=== PATIENT | male | born 1955 | race African-American/Black ===

== ENCOUNTER 2020-06-17 08:43 | Outpatient (CLI) | payer OTHER, SELFPAY | END 2020-06-17 08:44 | disposition home or self-care (01) | LOC: ANHCOVIDVC 08:43 | PROVIDERS: PCP Family Medicine | DX: Z23 Encounter for immunization (principal) | CPT/HCPCS: 0001A; 91300 ==

== ENCOUNTER 2020-07-08 08:42 | Outpatient (CLI) | payer OTHER, SELFPAY | END 2020-07-08 08:43 | LOC: ANHCOVIDVC 08:42 | PROVIDERS: PCP Family Medicine | DX: Z23 Encounter for immunization (principal) | CPT/HCPCS: 0002A; 91300 ==

== ENCOUNTER 2021-08-09 16:43 | Inpatient (IN) | payer BC, SELFPAY ==
[2021-08-09] VITALS (56 sets, daily range): BP systolic 74–145; BP diastolic 55–121; PULSE 73–89; RESP 16–48; TEMP 35.2–36.6; O2SAT 92–100; BMI 29.3
--- NOTE | ~2021-08-09 | XR_ITS ---
EXAMINATION: XR chest 1V portable DATE: 08/13/2021 05:40 INDICATION: Cardiopulmonary arrest TECHNIQUE: frontal view of the chest was obtained. COMPARISON: Chest radiograph dated 08/12/2021 FINDINGS: Endotracheal tube tip 3.1 cm above the dmitry. Right internal jugular central venous catheter with di stal tip at the caudal superior vena cava. Nasogastric tube extends below the left hemidiaphragm wit h distal tip collimated off the study. Persistent patchy airspace opacities in both lungs with perihilar predominance. No pleural effusion o r pneumothorax. The cardiomediastinal silhouette is normal. IMPRESSION: 1. No significant change in bilateral perihilar predominant lung disease which could represent pneumo audi and/or pulmonary edema. Reviewed, dictated and finalized at location A. IMPRESSION: 1. No significant change in bilateral perihilar predominant lung disease which could represent pneumonia and/or pulmonary edema.
--- NOTE | ~2021-08-09 | XR_ITS ---
EXAMINATION: XR chest 1V portable INDICATION: Hypoxia TECHNIQUE: Portable AP chest at 1449 hours COMPARISON: 0515 hours FINDINGS: The endotracheal tube ends approximately 4.2 cm above the dmitry. The nasogastric tube is f ollowed as far as the stomach. Its tip is beyond the inferior margin of the radiograph. A right inter nal jugular catheter ends in the midsuperior vena cava. There are diffuse interstitial and airspace o pacities with slight worsening. The heart size is normal. There is no pleural effusion or pneumothora x. IMPRESSION: 1. Worsening pulmonary edema. Reviewed, dictated and finalized at location A.
--- NOTE | ~2021-08-09 | CT_ITS ---
EXAMINATION: CT cervical spine wo con DATE: 08/09/2021 18:50 INDICATION: fall TECHNIQUE: Computed tomography (CT) of the cervical spine was performed without intravenous contrast. Automated exposure control and iterative reconstruction technique were employed. The dose-length pro duct was 482.74 mGy-cm. COMPARISON: None FINDINGS: Counting reference: Craniocervical junction. There are seven cervical type vertebral bodies. Anatomic Variants: None. Vertebral Body Alignment: Intact. Craniocervical junction: Moderate degenerative change. Alignment intact. Osseous structures/fracture: No evidence of a lytic or blastic process in the visualized spine. N o evidence of acute fracture. Small left mastoid effusion. Cervical soft tissues: The paraspinal soft tissues planes are maintained. Biapical opacities may r eflect pulmonary edema. Partially visualized endotracheal and nasogastric tubes. Degenerative changes: Degenerative changes, without severe neural foraminal or central canal narrowin g. IMPRESSION: No acute fracture or traumatic malalignment in the cervical spine. Reviewed, dictated and finalized at location K.
--- NOTE | ~2021-08-09 | US_ITS ---
EXAMINATION: US renal BI DATE: 08/15/2021 12:20 INDICATION: Acute kidney injury TECHNIQUE: Multiple grayscale and Doppler ultrasound images of the kidneys were obtained. COMPARISON: None. FINDINGS: The right kidney measures 10.7 x 6.7 x 5.6 cm. The left kidney measures 9.7 x 5.3 x 6.6 cm. The kidneys demonstrate normal parenchymal echogenicity. There is no hydronephrosis. The bladder is decompressed by Delgadillo catheter. IMPRESSION: 1. Normal kidneys without hydronephrosis. Reviewed, dictated and finalized at location A.
--- NOTE | ~2021-08-09 | XR_ITS ---
EXAMINATION: XR chest port-a-cath/central Exam Date/Time: 08/09/2021 19:30 CDT CLINICAL HISTORY: central line placement Comparison: None available. RESULT: Lines, tubes, and devices: Endotracheal tube terminating 2.4 cm above the dmitry. Right IJ central v enous line terminating in the SVC. Lungs and pleura: Increased patchy perihilar opacities. Low lung volumes. Cardiomediastinal silhouette: Stable cardiomediastinal silhouette. Other: No acute osseous or upper abdominal finding. IMPRESSION: Medial right IJ central venous line, in good position. Worsening pulmonary opacities may reflect deve loping edema. Reviewed, dictated and finalized at [facility]. IMPRESSION: Medial right IJ central venous line, in good position. Worsening pulmonary opac ities may reflect developing edema.
--- NOTE | ~2021-08-09 | XR_ITS ---
EXAMINATION: XR chest 1V portable DATE: 08/10/2021 05:41 INDICATION: Cardiopulmonary arrest TECHNIQUE: frontal view of the chest was obtained. COMPARISON: Chest radiograph dated 08/09/2021 FINDINGS: Endotracheal tube tip 3.8 cm above the dmitry. Right internal jugular central venous catheter with di stal tip in the midsuperior vena cava. Nasogastric tube extends below the left hemidiaphragm with di stal tip collimated off the study. Persistent opacities throughout all lung zones bilaterally with perihilar predominance. No pleural ef fusion or pneumothorax. The cardiomediastinal silhouette is normal. IMPRESSION: 1. Minimal change in diffuse bilateral lung disease which could represent pneumonia or pulmonary jose e a. Reviewed, dictated and finalized at location A. IMPRESSION: 1. Minimal change in diffuse bilateral lung disease which could represent pneum onia or pulmonary edema.
--- NOTE | ~2021-08-09 | XR_ITS ---
EXAMINATION: XR chest 1V portable INDICATION: Respiratory failure TECHNIQUE: Portable AP chest at 0516 hours COMPARISON: 08/14/2021 FINDINGS: The endotracheal tube ends approximately 4.1 cm above the dmitry. The nasogastric tube is f ollowed as far as the stomach. Its tip is beyond the inferior margin of the radiograph. A right inter nal jugular catheter ends with its tip in the distal superior vena cava patchy bilateral opacities pe rsist throughout all lung zones without significant change. IMPRESSION: 1. Diffuse lung disease, consistent with pneumonia and/or pulmonary edema. Reviewed, dictated and finalized at location A.
--- NOTE | ~2021-08-09 | XR_ITS ---
EXAMINATION: XR chest 1V portable INDICATION: Cardiopulmonary arrest TECHNIQUE: Portable AP chest at 0515 hours COMPARISON: 08/13/2021 FINDINGS: The endotracheal tube ends approximately 2.9 cm above the dmitry. The nasogastric tube is f ollowed as far as the stomach. Its tip is beyond the inferior margin of the radiograph. A right inter nal jugular central venous catheter ends with its tip in the distal superior vena cava. A mild diffus e interstitial pattern persists but has improved. There is no pleural effusion or pneumothorax. The c ardiomediastinal silhouette is normal. IMPRESSION: 1. Improving pulmonary edema. Reviewed, dictated and finalized at location A.
--- NOTE | ~2021-08-09 | CT_ITS ---
EXAMINATION: CT brain wo con DATE: 08/09/2021 18:50 INDICATION: fall TECHNIQUE: Computed tomography (CT) of the head was performed without intravenous contrast. The mA wa s adjusted according to patient size. Iterative reconstruction technique was employed. The dose-lengt h product was 605.33 mGy-cm. COMPARISON: None FINDINGS: No acute intracranial hemorrhage or extra-axial fluid collection. No hydrocephalus, mass, or herniation. No acute ischemic infarct. Unremarkable dural venous sinus attenuation. No acute osseous abnormality. The aerated spaces are clear. Mild chronic white matter change. Atherosclerotic intracranial calcifications. IMPRESSION: No acute intracranial process. Reviewed, dictated and finalized at location K.
--- NOTE | ~2021-08-09 | US_ITS ---
EXAMINATION: US venous doppler [facility] DATE: 08/11/2021 11:00 INDICATION: Lower limb swelling. TECHNIQUE: Grayscale ultrasound images without and with compression and Doppler ultrasound images of the bilateral lower extremity veins were obtained. COMPARISON: None. FINDINGS: The visualized portions of right common femoral vein, profunda (deep) femoral vein, femoral vein, pop liteal vein, posterior tibial veins, peroneal veins, gastrocnemius vein and greater saphenous vein ou tflow are patent. The visualized portions of left common femoral vein, profunda femoral vein, femoral vein, popliteal v ein, posterior tibial veins, peroneal veins, gastrocnemius vein and greater saphenous vein outflow ar e patent. IMPRESSION: 1. No deep venous thrombosis in either lower limb. Reviewed, dictated and finalized at location A.
--- NOTE | ~2021-08-09 | CT_ITS ---
EXAMINATION: CT brain wo con DATE: 08/11/2021 09:48 INDICATION: Anoxic brain injury. TECHNIQUE: Computed tomography (CT) of the head was performed without intravenous contrast. The mA wa s adjusted according to patient size. Iterative reconstruction technique was employed. The dose-lengt h product was 605.33 mGy-cm. COMPARISON: Head CT 08/09/2021 FINDINGS: There is no intracranial hemorrhage, acute infarction, or abnormal intracranial mass lesion . The ventricles are normal in size. The orbits are normal. There is mucosal thickening and dependent fluid in the mid right nasal sinuses. There are trace bilateral mastoid effusions. There is posterio r superior scalp soft tissue swelling. Partially visualized is a nasogastric tube. IMPRESSION: 1. Normal brain. Reviewed, dictated and finalized at location B. IMPRESSION: 1. Normal brain.
--- NOTE | ~2021-08-09 | XR_ITS ---
EXAMINATION: XR chest 1V portable DATE: 08/12/2021 05:28 INDICATION: Cardiopulmonary arrest TECHNIQUE: frontal view of the chest was obtained. COMPARISON: Chest radiograph dated 08/11/2021 FINDINGS: Endotracheal tube tip 3.8 cm above the dmitry. Right internal jugular central venous catheter with di stal tip at the midsuperior vena cava. Nasogastric tube extends below the left hemidiaphragm with di stal tip collimated off the study. Persistent patchy airspace opacities throughout both lungs consistent with multifocal pneumonia. No p leural effusion or pneumothorax. The cardiomediastinal silhouette is normal. IMPRESSION: 1. No significant change in bilateral multifocal pneumonia. Reviewed, dictated and finalized at location A.
--- NOTE | ~2021-08-09 | XR_ITS ---
r EXAMINATION: XR chest ET placement Exam Date/Time: 08/09/2021 17:00 CDT CLINICAL HISTORY: ET tube intubation Comparison: 11/10/2016. RESULT: Lines, tubes, and devices: Endotracheal tube terminating in the distal trachea 1.7 cm above the brook na. Lungs and pleura: Low lung volumes with bronchovascular crowding. Cardiomediastinal silhouette: Stable cardiomediastinal silhouette. Other: No acute osseous or upper abdominal finding. IMPRESSION: Endotracheal tube, tip terminating 1.7 cm above dmitry. Reviewed, dictated and finalized at location K.
--- NOTE | ~2021-08-09 | XR_ITS ---
EXAM: XR abdomen NG/feed tube insert HISTORY: NG placement COMPARISON: None available FINDINGS: Atelectasis/consolidation in the lung bases, which are incompletely visualized. NG tube, t ip and side port projecting over the stomach. Partially visualized bowel gas pattern is normal. Regio nal bones and soft tissues are normal for age. IMPRESSION: NG tube, in good position. Reviewed, dictated and finalized at location K. IMPRESSION: NG tube, in good position.
--- NOTE | ~2021-08-09 | XR_ITS ---
EXAMINATION: XR chest 1V portable DATE: 08/11/2021 05:30 INDICATION: Cardiopulmonary arrest TECHNIQUE: frontal view of the chest was obtained. COMPARISON: Chest radiograph dated 08/10/21 FINDINGS: Endotracheal tube tip 4.9 cm above the dmitry. Nasogastric tube extends below the left hemidiaphragm with distal tip collimated off the study. Right internal jugular central venous catheter with distal tip in the midsuperior vena cava. Persistent bilateral airspace opacities with perihilar predominance. No pleural effusion or pneumotho rax. The cardiomediastinal silhouette is normal. IMPRESSION: 1. No significant change in diffuse bilateral lung disease which could represent pneumonia or pulmona ry edema. Reviewed, dictated and finalized at location A. IMPRESSION: 1. No significant change in diffuse bilateral lung disease which could represen t pneumonia or pulmonary edema.
--- NOTE | ~2021-08-09 | CT_ITS ---
EXAMINATION: CTA chest PE abdomen pel DATE: 08/11/2021 09:48 INDICATION: Respiratory failure. Fall. TECHNIQUE: Computed tomography angiography (CTA) of the chest was performed with 100 mL Omnipaque-350 intravenous contrast timed to evaluate the pulmonary arteries. Coronal maximum intensity projection 3D-reconstructions were created by the technologist. Computed tomography (CT) of the abdomen and pelv is was performed with intravenous contrast. Automated exposure control and iterative reconstruction t echnique were employed. The dose-length product was 2154.98 mGy-cm. COMPARISON: CT abdomen and pelvis 11/11/2016 FINDINGS: CTA chest: There are patchy airspace opacities and centrilobular nodules in all lobes. There are conf luent dependent airspace opacities in the lower lobes with air bronchograms. There are small pleural effusions. The endotracheal tube tip is in expected position above the dmitry. The heart size is norm al. There are coronary artery calcifications. No pericardial effusion. There is no pulmonary embolus. The nasogastric tube tip is in the stomach. There is mild thoracic spondylosis. CT abdomen and pelvis: The liver, gallbladder, spleen, pancreas, and adrenal glands are normal. There is cortical thinning of the kidneys. There is trace pelvic ascites. There are no dilated loops of dilcia wel. The appendix is normal. There are no pathologically enlarged lymph nodes. There is mild lumbar s pondylosis. IMPRESSION: 1. No pulmonary embolus. 2. Pneumonia involving all lobes, worst in the lower lobes. 3. Small pleural effusions. Reviewed, dictated and finalized at location B.
[2021-08-09] MEDS: ETOMIDATE 20 MG/10 ML AMPUL 8 MG IV PUSH (16:51)
[2021-08-09] MEDS: SUCCINYLCHOLINE CHLORIDE 20 MG/ML 10 ML VIAL 100 MG IV PUSH (16:51)
--- NOTE | 2021-08-09 16:53 | ECG_ITS ---
Measurements Intervals [place] Rate: 83 P: 46 PA: 185 QRS: -41 QRSD: 97 T: 8 QT: 421 QTc: 497 Interpretive Statements SINUS RHYTHM LEFT AXIS DEVIATION T WAVE ABNORMALITY IN ANTEROLATERAL LEADS- CONSIDER ISCHEMIA BASELINE WANDER- I, III, AVL, AVF, V6 ABNORMAL ECG Electronically Signed On 08-09-2021 20:24:17 CDT by Vidal Landeros D.O.
--- NOTE | 2021-08-09 16:53 | ECG_ITS ---
Measurements Intervals [place] Rate: 106 P: 41 PA: 129 QRS: -34 QRSD: 90 T: 67 QT: 341 QTc: 454 Interpretive Statements SINUS TACHYCARDIA LEFT AXIS DEVIATION BASELINE WANDER- V1-V2 BORDERLINE ECG Electronically Signed On 08-10-2021 8:53:21 CDT by Vidal Landeros D.O.
--- NOTE | 2021-08-09 17:00 | PC.NURSE ---
Patient arrives to ED with agonal breathing. Patient being oxygenated via BVM by EMS. Dr. Stewart at bedside and RSI initiated. IV Succ and Etomidate administered and patient intubated via glidescope at 1652. Tube is 8 cm and measuring 25 cm at the lips.
--- NOTE | 2021-08-09 17:02 | ED.CPR ---
HPI - CPR General Chief Complaint: Cardiac Arrest/CPR Stated Complaint: post cardiac arrest - ROSC Source: RN notes reviewed History of Present Illness HPI narrative: Patient presents to emergency department from home for cardiac arrest. History is per EMS as well as the patient's who was present and the patient was standing in a doorway talking the and suddenly he slumped over the is able to catch him and take him to the ground and the patient was unresponsive when police arrived and AED was placed on the patient and advised 1 shock and patient was shocked CPR was started and when pulse check came for the second time the AED had recommended no shock. When EMS arrived patient was in [place] CPR was performed and oral airway was placed but the patient did vomit this out and they did have to suction a large amount of vomitus on the patient's mouth when they went to do pulse check the patient had regained ROSC patient is currently in bed he will move his head [id number] his eyes move [id number] but he does not follow any spontaneous commands nonverbal is being assisted with BVM Related Data Home Medications Medication Instructions Recorded Confirmed aspirin 81 mg tablet,delayed 81 mg PO DAILY 10/23/19 07/21/21 release Allergies Allergy/AdvReac Type Severity Reaction Status Date / Time No Known Allergies Allergy Verified 07/21/21 13:07 Review of Systems Review of Systems: Unable to obtain secondary to altered mental status PMFSH Past Medical History Medical History CAD in [place] artery Dyslipidemia Essential (primary) hypertension Gout Hypertension Microalbuminuria Type 2 diabetes mellitus without complication, without long-term current use of insulin Surgical History Surgical History History of coronary artery stent placement (~2013) History of hernia repair (~1968) Family History Family History Father Carcinoma of colon, Onset Age: 52 Sibling Malignant neoplasm of prostate, Onset Age: 52 Other Diabetes mellitus Family history of Alzheimer's disease Family history of alcoholism Family history of congestive heart failure Hypertension Social History Social History Smoking status: Never smoker Second hand tobacco smoke exposure: No Alcohol intake: never Substance use: never Substance use type: does not use Gender identity (if verbalized by the patient): Male Exam Narrative: CAPPEARANCE: Lying in bed unresponsive to verbal stimuli and will withdraw to painful stimuli HEENT: Normocephalic, atraumatic, dried emesis on face Eyes: PERRL RESPIRATORY: Patient with some mild spontaneous respiration coarse breath sounds bilateral lung alexander no wheezing CARDIOVASCULAR: Regular rate and rhythm without a murmur ABDOMINAL: Soft, nondistended MUSCULOSKELETAl: No clubbing cyanosis or edema does move all extremities NEURO: Laying in bed eyes open looking back and forth does not follow any commands does not follow any verbal commands unable to squeeze hand when asked withdraw to painful stimuli SKIN:: Cool and dry Course Course Emergency Course: Reviewed old records patient with history of RCA stent in [address] Bullard Patient's family was updated on patient's status After initial EKG: Discussed with Dr. Berger with no elevation at this time recommends no Adon at this time Called and discussed with Dr. Irvin presentation work-up agrees with admission to the ICU recommends hypothermia protocol Discussed with MARIELENA Pyle for Dr. Lucas agrees with admission Discussed with Dr. Rodriguez for cardiology agrees with consult no further anticoagulation at this time Patient family again updated on plan for admission Vital Signs Vital signs: Vi
[2021-08-09 17:04] LABS: Basophils Percent Auto 0.4 % (0.2-1.2); Eosinophils Absolute Auto 0.1 K/mm3 (0-0.3); Eosinophils Percent Auto 1.1 % (0-4.4); Hematocrit 44.1 % (42.0-52.0); Hemoglobin 13.9 g/dL (14.0-18.0); Immature Granulocyte Absolute 0.07 K/mm3 (0.00-0.031); Immature Granulocyte Percent A 0.6 % (0-0.5); Lymphocytes Absolute Auto 6.67 K/mm3 (0.9-3.2); Lymphocytes Percent Auto 60.5 % (18.3-44.2); Mean Corpuscular HGB Conc 31.5 g/dl (32-36); Mean Corpuscular Hemoglobin 28.5 pg (26-34); Mean Corpuscular Volume 90.4 fl (80-100); Mean Platelet Volume 10.2 fl (7.4-10.4); Monocytes Absolute Auto 0.7 K/mm3 (0.1-0.6); Monocytes Percent Auto 6.2 % (2.6-8.5); Neutrophils Absolute Auto 3.5 K/mm3 (1.3-6.7); Neutrophils Percent Auto 31.2 % (45.5-73.1); Platelet Count Result 291 k/mm3 (150-375); Red Blood Count 4.88 M/mm3 (4.6-6.20); Red Cell Distribution Width 13.5 % (11.5-14.5)
[2021-08-09] MEDS: MIDAZOLAM HCL (*CRX) 2 MG/2 ML VIAL IV PUSH ×3 (17:05→17:45)
[2021-08-09] MEDS: fentaNYL CITRATE INJ (*CRX) 100 MCG/2 ML VIAL 25 MCG IV PUSH (17:07)
[2021-08-09 17:15] LABS: Prothrombin Time 13.1 Seconds (11.1-14.7)
[2021-08-09 17:16] LABS: Alanine Aminotransferase 387 U/L (4-50); Albumin Level 3.9 g/dL (3.5-5.1); Alkaline Phosphatase 99 U/L (38-126); Anion Gap 9 mmol/L (8-16); Aspartate Amino Transferase 483 U/L (17-59); Bilirubin,Total 0.3 mg/dL (0.2-1.3); Blood Urea Nitrogen 26 mg/dL (9-20); Calcium 8.4 mg/dL (8.4-10.2); Carbon Dioxide 21 mmol/L (22-30); Chloride 103 mmol/L (98-107); Estimated Glomerular Filt Rate > 60; Glucose 416 mg/dL (65-110); Lipase 331 U/L (23-300); Partial Thromboplastin Time 27.2 SECONDS (22.3-36.8); Potassium 4.4 mmol/L (3.4-5.0); Sodium 133 mmol/L (137-145)
[2021-08-09 17:17] LABS: Alveolar/Arterial O2 Gradient 542.5 mmHg; Base Excess ABG -10.8 mEq/l (+/-2.0); Fractional Inspired Oxygen 100 %; HCO3 ABG 16.4 mEq/l (22.0-26.0); Oxygen Content ABG 18.9 %vol (16.0-22.0); Oxyhemoglobin 96.9 % THb (90.0-100.0); PCO2 ABG 41.3 mmHg (35.0-45.0); PO2 ABG 129.2 mmHg (80.0-100.0); PO2 FiO2 Ratio Arterial Blood 1.29 %; Total Hemoglobin 13.7 g/dL (12.0-18.0)
[2021-08-09 17:19] LABS: Device VENTILATOR; Modified Allen's Test Pass; Site Drawn RIGHT RADIAL; pH ABG 7.218 (7.350-7.450)
[2021-08-09 17:20] LABS: Arterial Blood Gas PEEP 5 cmH2O; Arterial Blood Gas Tidal Volume 450 ml; Arterial Blood Gas Vent Mode CMV; Arterial Blood Gas Ventilator rate 20 /MIN
[2021-08-09 17:27] LABS: Troponin I 0.018 ng/mL (0.000-0.034)
[2021-08-09] MEDS: SODIUM CHLORIDE 0.9% IV 1,000 ML 999 ML IV CONT (17:30)
[2021-08-09] MEDS: MIDAZOLAM 100MG/NS 100ML(*CRX) 100 MG/100 ML BAG IV CONT (17:30)
[2021-08-09] MEDS: FENTANYL 2,500MCG/NS250ML(*CRX 2,500 MCG/250 ML BAG IV CONT (17:30)
[2021-08-09 17:35] LABS: Magnesium 1.9 mg/dL (1.6-2.3)
[2021-08-09 17:45] LABS: NT Pro B Type Natriuretic Pept 147 pg/mL (5-100)
[2021-08-09] MEDS: ONDANSETRON INJ 4 MG/2 ML VIAL IV PUSH (17:45)
[2021-08-09 18:00] LABS: Lactic Acid Reflex 2.9 mmol/L (0.7-2.0)
[2021-08-09] MEDS: PROPOFOL IV EMULSION 100 ML 2.95 MG IV CONT (18:10)
[2021-08-09] MEDS: PIPERACILLIN/TAZOBACTAM SOD 4.5 GM in SODIUM CHLORIDE 0.9% IV 100 ML 200 ML IVPB (18:24)
--- NOTE | 2021-08-09 19:13 | PC.NURSE ---
Assumed care of pt. at this time. Report from PERRI Arriaza.
--- NOTE | 2021-08-09 19:38 | PC.NURSE ---
Patient report provided to PERRI Sprague. All questions answered and care of pt transferred.
[2021-08-09 19:50] LABS: Base Excess ABG -6.8 mEq/l (+/-2.0); Carboxyhemoglobin 0.3 % THb (0-2.0); Fractional Inspired Oxygen 100 %; HCO3 ABG 20.2 mEq/l (22.0-26.0); Methemoglobin ABG 0.4 %THb (0-1.5); Oxygen Content ABG 18.6 %vol (16.0-22.0); Oxygen Saturation ABG 98.2 % (95.0-100.0); PCO2 ABG 46.1 mmHg (35.0-45.0); PO2 ABG 131.9 mmHg (80.0-100.0); PO2 FiO2 Ratio Arterial Blood 1.32 %; Reduced Hemoglobin 2.3 %THb (0-5.0); Total Hemoglobin 13.5 g/dL (12.0-18.0)
[2021-08-09 19:56] LABS: Arterial Blood Gas PEEP 5 cmH2O; Arterial Blood Gas Tidal Volume 450 ml; Arterial Blood Gas Vent Mode CMV; Arterial Blood Gas Ventilator rate 20 /MIN; Device VENTILATOR; Modified Allen's Test Unable to perform; Site Drawn RIGHT RADIAL; pH ABG 7.259 (7.350-7.450)
[2021-08-09 19:56] LABS: Appearance Urine Clear (Clear); Bilirubin Urine Negative (Negative); Blood Urine 2+ (Negative); Color Urine Yellow (Yellow); Glucose Urine UA 3+ mg/dL (Negative); Ketones Urine Negative (Negative); Leukocyte Esterase Ur Negative LEU/UL (Negative); Nitrate Urine Negative (Negative); Protein Urine 2+ mg/dL (Negative); Urobilinogen Urine 0.2 mg/dL (<2.0); pH Urine 5.5 (5.0-9.0)
[2021-08-09 19:59] LABS: Mucus Urine Rare /lpf; RBC Urine 0-2 /hpf (0-2); Squamous Epithelial Cell Urine Rare /hpf (Few); WBC Urine 0-3 /hpf
[2021-08-09 20:02] LABS: Add Urine Microscopic? YES
[2021-08-09 20:10] LABS: Amphetamine Screen Urine Negative (Negative); Barbiturate Screen Urine Negative (Negative); Benzodiazepines Screen Urine Positive (Negative); Cannabinoid Screen Urine Negative (Negative); Cocaine Screen Urine Negative (Negative); Methadone Screen Urine Negative (Negative); Opiate Screen Urine Negative (Negative); Phencyclidine Screen Urine Negative (Negative)
[2021-08-09 20:46] LABS: Reflex Lactic Acid Yes or No Add Lactic
[2021-08-09] MEDS: PROPOFOL IV EMULSION 100 ML 35 MG (21:17)
--- NOTE | 2021-08-09 21:34 | PC.NURSE ---
Patient arrived at 2100. Updated Dr. Irvin. Stop propofol for at least 10 mins, see if patient follows any purposeful commands. Call back after assessment. Start LR at 100ml/hr for maintenance fluids.
--- NOTE | 2021-08-09 21:42 | ADMGEN ---
This patient, Ravi Mock, was admitted to Intensive Care Unit-6. Patient/family oriented to hospital policies and general routines including ID bracelet, bed and alarms, visiting hours, pain management, procedures, bathroom and other care routines, personal items, smoking policy, room service/diet, and visiting hours. Information on how to activate the Rapid Response Team has been discussed. Patient/Family are encouraged to report perceived risks to care and to ask questions if they do not understand what they are told or what they should do.
--- NOTE | 2021-08-09 22:00 | PC.NURSE ---
Updated Dr. Irvin, Patient able to move arms, legs and head, however unable to follow commands. Start Hypothermia protocol per Dr. Irvin
[2021-08-09] MEDS: FENTANYL 2,500MCG/NS250ML(*CRX 2,500 MCG/250 ML BAG 20 MCG IV CONT (22:04)
[2021-08-09 22:08] LABS: Glucose Point of Care 340 mg/dl (65-105)
--- NOTE | 2021-08-09 22:30 | PM.IMHP ---
H&P: HPI History of Present Illness Date/Time: Patient requires inpatient monitoring with expected length of stay to exceed 2 midnights for management of care. 08/09/21 22:30 Chief Complaint: Cardiac arrest Narrative: Mr. Mock is a 65-year-old gentleman who presented emergency room via EMS after having a witnessed cardiac arrest. Patient is unable to give any type of history there is no family at bedside so all of may history of the coming from previous records and ER records. Emergency room records patient was talking to his spouse and he went unresponsive. CPR was started and the police department arrived 1st and patient was placed on AED. AED did advise 1 shock which was delivered and then no further shocks were advised. Patient was then transported to the hospital for further evaluation. In the emergency room patient was then intubated in cardiology was notified of patient's presence. Patient has a known history of coronary disease status post stent placement, diabetes mellitus, dyslipidemia, hypertension he, and gout. At this time patient remains sedated intubated insert unable to give any type of history. Review of Systems Review of Systems: Unable to obtain review of systems secondary to patient being sedated and intubated. [facility] Past Medical History Medical History CAD in [place] artery Dyslipidemia Essential (primary) hypertension Gout Hypertension Microalbuminuria Type 2 diabetes mellitus without complication, without long-term current use of insulin Surgical History Surgical History History of coronary artery stent placement (~2013) History of hernia repair (~1968) Family History Family History Father Carcinoma of colon, Onset Age: 52 Sibling Malignant neoplasm of prostate, Onset Age: 52 Other Diabetes mellitus Family history of Alzheimer's disease Family history of alcoholism Family history of congestive heart failure Hypertension Social History Social History Smoking status: Never smoker Second hand tobacco smoke exposure: No Alcohol intake: never Substance use: never Substance use type: does not use Gender identity (if verbalized by the patient): Male Spiritual care concerns: No (NATALIE: Patient intubated & sedated) Meds Home Medications and Allergies Home Medications Medication Instructions Recorded Confirmed Type aspirin 81 mg tablet,delayed 81 mg PO DAILY 10/23/19 07/21/21 History release lisinopril 5 mg tablet 5 mg PO DAILY #90 tablet 07/21/21 07/21/21 Rx metformin 500 mg tablet,extended 1,000 mg PO QPM #180 tablet 07/21/21 07/21/21 Rx release 24hr metoprolol succinate 25 mg 25 mg PO DAILY #90 tablet 07/21/21 07/21/21 Rx tablet,extended release 24 hr atorvastatin 10 mg tablet 10 mg PO QHS #90 tablet 07/29/21 Rx blood-glucose meter #1 ea 07/30/21 Rx cholecalciferol (vitamin D3) 50 50 mcg PO DAILY #1 cap 07/30/21 Rx mcg (2,000 unit) capsule empagliflozin 25 mg tablet 25 mg PO DAILY #90 tablet 07/30/21 Rx glipizide 10 mg tablet, extended 10 mg PO BID #180 tablet 07/30/21 Rx release 24 hr Allergies Allergy/AdvReac Type Severity Reaction Status Date / Time No Known Allergies Allergy Verified 07/21/21 13:07 Vital Signs Vital Signs - 24 hr 08/09/21 16:52 08/09/21 17:30 08/09/21 18:10 Temperature Pulse Rate 79 86 80 Respiratory Rate 16 16 Blood Pressure Pulse Oximetry 100 08/09/21 18:25 08/09/21 18:35 08/09/21 18:58 Temperature Pulse Rate 80 83 84 Respiratory Rate 16 16 20 Blood Pressure 109/65 Pulse Oximetry 100 08/09/21 18:59 08/09/21 19:00 08/09/21 19:02 Temperature Pulse Rate 83 84 83 Respiratory Rate 18 20 22 H Blood Pressure 115/62 Pulse Oximetry 100 100 100
[2021-08-09] MEDS: INSULIN HUMAN REGULAR (*BKC) 100 UNITS/ML 10 UNITS IV PUSH (22:38)
[2021-08-09] MEDS: MINERAL OIL/WHITE PETROLATUM OINTMENT 1 APPLIC EACH EYE (22:39)
[2021-08-09] MEDS: CENTRAL LINE FLUSH 10 ML IV PUSH (22:39)
[2021-08-09] MEDS: LACTATED RINGERS 1,000 ML 100 ML IV CONT (22:39)
[2021-08-09 22:53] LABS: Hematocrit 46.1 % (42.0-52.0); Hemoglobin 14.3 g/dL (14.0-18.0); Mean Corpuscular Hemoglobin 28.3 pg (26-34); Mean Corpuscular Volume 91.1 fl (80-100); Mean Platelet Volume 10.1 fl (7.4-10.4); Platelet Count Result 181 k/mm3 (150-375); Red Blood Count 5.06 M/mm3 (4.6-6.20); Red Cell Distribution Width 13.6 % (11.5-14.5); White Blood Count 3.6 K/mm3 (4.5-10.0)
[2021-08-09 23:03] LABS: Creatine Kinase 1176 U/L (55-170)
[2021-08-09 23:07] LABS: Lactic Acid Reflex 2.2 mmol/L (0.7-2.0)
[2021-08-09 23:09] LABS: INR 1.1; Prothrombin Time 13.7 Seconds (11.1-14.7)
[2021-08-09 23:10] LABS: Partial Thromboplastin Time 26.8 SECONDS (22.3-36.8)
[2021-08-10] VITALS (71 sets, daily range): BP systolic 81–206; BP diastolic 58–89; PULSE 43–77; RESP 18–22; TEMP 31.2–36.1; O2SAT 92–100; BMI 29.4
--- NOTE | 2021-08-10 | ECHO_ITS ---
Patient Info Name: Ravi Mock Age: 65 years : 1955 Gender: Male Ht: 70 in Wt: 205 lbs BSA: 2.17 m2 HR: 51 bpm BP: 92 / 60 mmHg Heart Rhythm: Sinus Rhythm Technical Quality: Fair Exam Date: 08/10/2021 10:00 AM Exam Location: [facility] Patient Status: Inpatient Admit Date: 08/09/2021 Staff Ordering Physician: Sky Irvin MD Printing Plate Setter: Ada Johnson RDCS Attending Provider: Jameson Lucas MD Exam Type: CA echo doppler color flow Study Info Indications I46.9 - Cardiac arrest, cause unspecified Complete two-dimensional, color flow and Doppler transthoracic echocardiogram is performed. Summary 1. Complete two-dimensional, color flow and Doppler transthoracic echocardiogram is performed. 2. Left ventricular systolic function is low normal, estimated at 50-55%. 3. Left ventricular chamber dimension is normal. 4. There is severely increased left ventricular wall thickness. 5. The left ventricular diastolic function is grade II diastolic dysfunction. 6. The inferior wall is hypokinetic. 7. Right ventricular chamber dimension is mildly enlarged. 8. Left atrial chamber dimension is mildly enlarged. 9. There is mild tricuspid valve regurgitation. Left Ventricle Left ventricular systolic function is low normal, estimated at 50-55%. Left ventricular chamber dimension is normal. There is severely increased left ventricular wall thickness. The left ventricular diastolic function is grade II diastolic dysfunction. The inferior wall is hypokinetic. All other duarte appear normal. Right Ventricle Right ventricular chamber dimension is mildly enlarged. Right ventricular systolic function is normal. Left Atria Left atrial chamber dimension is mildly enlarged. Right Atria Right atrial chamber dimension is normal. Atrial Septum Intact interatrial septum visualized by color flow imaging. Aortic Valve The aortic valve is trileaflet. There is mild aortic valve sclerosis. There is no aortic valve stenosis. There is trace aortic valve regurgitation. Pulmonic Valve The pulmonic valve is normal. There is no pulmonic valve stenosis. There is trace pulmonic regurgitation. Mitral Valve The mitral valve has normal leaflets. There is no mitral valve stenosis. There is trace mitral valve regurgitation. Tricuspid Valve The tricuspid valve leaflets are normal. There is no significant tricuspid valve stenosis. There is mild tricuspid valve regurgitation. No pulmonary hypertension, estimated pulmonary arterial systolic pressure is 25 mmHg. Pericardium/Pleural The pericardium appears normal. There is no pericardial effusion. Inferior Vena Cava Normal inferior vena cava with <50% collapse upon inspiration consistent with elevated right atrial pressure, 10 mmHg. Aorta The aortic root size at the sinus of Valsalva is normal. The prox ascending aorta size is normal. Left Ventricular Outflow Tract Name Value Normal LVOT 2D LVOT Diameter 2.0 cm LVOT Doppler LVOT Peak Gradient 3 mmHg LVOT Mean Gradient 2 mmHg
[2021-08-10] MEDS: INSULIN ASPART (*BKC) 100 UNITS/ML SUB-Q ×5 (00:02→20:58)
[2021-08-10 00:21] LABS: Glucose Point of Care 334 mg/dl (65-105)
[2021-08-10] MEDS: PIPERACILLIN/TAZOBACTAM SOD 4.5 GM in SODIUM CHLORIDE 0.9% IV 100 ML 200 ML IVPB ×5 (00:26→23:53)
[2021-08-10] MEDS: HEPARIN SOD/D5W 100 UNITS/ML 25,000 UNITS/250 ML BAG 15 UNITS IV CONT (00:31)
[2021-08-10] MEDS: NOREPINEPHRINE 8 MG/D5W 250 ML 8 MG/250 ML BAG 9.38 MG IV CONT (03:04)
--- NOTE | 2021-08-10 04:00 | PC.NURSE ---
Core temp reached at 0330 of 91.4
[2021-08-10 04:16] LABS: Glucose Point of Care 234 mg/dl (65-105)
[2021-08-10] MEDS: PROPOFOL IV EMULSION 100 ML 11.78 MG IV CONT (04:59)
[2021-08-10 05:43] LABS: Alveolar/Arterial O2 Gradient 302.7 mmHg; Base Excess ABG -10.7 mEq/l (+/-2.0); Carboxyhemoglobin 0.3 % THb (0-2.0); Fractional Inspired Oxygen 60 %; HCO3 ABG 18.1 mEq/l (22.0-26.0); Methemoglobin ABG 0.2 %THb (0-1.5); Oxygen Content ABG 19.4 %vol (16.0-22.0); Oxygen Saturation ABG 91.5 % (95.0-100.0); PCO2 ABG 51.8 mmHg (35.0-45.0); PO2 FiO2 Ratio Arterial Blood 1.28 %; Reduced Hemoglobin 7.5 %THb (0-5.0)
[2021-08-10 05:44] LABS: Device VENTILATOR; Modified Allen's Test Unable to perform; Site Drawn RIGHT RADIAL; pH ABG 7.162 (7.350-7.450)
[2021-08-10 05:45] LABS: Arterial Blood Gas PEEP 5 cmH2O; Arterial Blood Gas Tidal Volume 450 ml; Arterial Blood Gas Vent Mode CMV; Arterial Blood Gas Ventilator rate 20 /MIN
[2021-08-10 06:20] LABS: Hematocrit 45.3 % (42.0-52.0); Mean Corpuscular HGB Conc 30.9 g/dl (32-36); Mean Corpuscular Hemoglobin 28.7 pg (26-34); Mean Corpuscular Volume 92.8 fl (80-100); Mean Platelet Volume 10.3 fl (7.4-10.4); Platelet Count Result 266 k/mm3 (150-375); Red Blood Count 4.88 M/mm3 (4.6-6.20); Red Cell Distribution Width 13.6 % (11.5-14.5); White Blood Count 4.9 K/mm3 (4.5-10.0)
[2021-08-10 06:25] LABS: Alanine Aminotransferase 297 U/L (4-50); Albumin Level 2.8 g/dL (3.5-5.1); Alkaline Phosphatase 53 U/L (38-126); Anion Gap 6 mmol/L (8-16); Aspartate Amino Transferase 290 U/L (17-59); Bilirubin,Total 0.3 mg/dL (0.2-1.3); Blood Urea Nitrogen 29 mg/dL (9-20); Calcium 7.7 mg/dL (8.4-10.2); Carbon Dioxide 24 mmol/L (22-30); Chloride 109 mmol/L (98-107); Creatine Kinase 1338 U/L (55-170); Estimated CRCL calculation 54 ml/min; Estimated Glomerular Filt Rate > 60; Glucose 196 mg/dL (65-110); Magnesium 1.7 mg/dL (1.6-2.3); Phosphorus 3.5 mg/dL (2.5-4.5); Potassium 3.7 mmol/L (3.4-5.0); Sodium 139 mmol/L (137-145)
[2021-08-10 06:39] LABS: INR 1.2; Prothrombin Time 14.8 Seconds (11.1-14.7)
[2021-08-10] MEDS: CENTRAL LINE FLUSH 10 ML IV PUSH ×3 (06:53→20:59)
[2021-08-10] MEDS: SODIUM BICARBONATE 8.4% 50 MEQ/50 ML SYRINGE 100 MEQ IV PUSH (06:53)
[2021-08-10 06:54] LABS: Partial Thromboplastin Time > 200.0 SECONDS (22.3-36.8)
[2021-08-10] MEDS: LACTATED RINGERS 1,000 ML 100 ML IV CONT (08:03)
--- NOTE | 2021-08-10 08:28 | ECG_ITS ---
Measurements Intervals [place] Rate: 53 P: 70 DE: 161 QRS: -36 QRSD: 93 T: 74 QT: 534 QTc: 501 Interpretive Statements SINUS OR ECTOPIC ATRIAL BRADYCARDIA LEFT AXIS DEVIATION CONSIDER INFERIOR INFARCT, AGE INDETERMINATE BASELINE ARTIFACT- I, II, III, AVR, AVL, V1 ABNORMAL ECG Electronically Signed On 08-10-2021 10:05:45 CDT by Vidal Landeros D.O.
--- NOTE | 2021-08-10 08:34 | WPDCNINT ---
Assessment and Plan Assessment and plan (1) Acute respiratory failure: Code(s): J96.00 - Acute respiratory failure, unspecified whether with hypoxia or hypercapnia Status: Acute Assessment and Plan: Acute Respiratory failure secondary to cardiopulmonary, arrest, pulmonary edema and suspected aspiration pneumonia Continue full mechanical ventilation support to prevent hypoxemia/hypercarbia and end organ damage. ABG and PCXR reviewed Vent settings reviewed and will increase PEEP to 8 and respiratory rate increased to 22 Bicarb given for metabolic acidosis Weaning will depend on neurological improvement continue empiric Zosyn for aspiration pneumonia blood cultures already done and I will send sputum culture check procalcitonin level (2) Aspiration pneumonia: Code(s): J69.0 - Pneumonitis due to inhalation of food and vomit Status: Acute Assessment and Plan: see above (3) Anoxic brain injury: Code(s): G93.1 - Anoxic brain damage, not elsewhere classified Status: Acute Assessment and Plan: patient was not Demonstrating any purposeful movement in ER. He was started on sedatives for mechanical ventilation the ED. When patient arrived to ICU he was reassessed by turning his sedation of but he did not demonstrate any purposeful movement again hence patient was started on TTM protocol. He reached his goal temperature at 3:30 a.m.. Will be continued for 24 hours. Once patient is rewarming, sedation holiday will be performed to further assess initial head CT was negative will repeat head CT and EEG if needed currently sedated with propofol and fentanyl (4) Cardiopulmonary arrest: Code(s): I46.9 - Cardiac arrest, cause unspecified Status: Acute Assessment and Plan: patient does have history of coronary disease along with several risk factors. It appears that the initial rhythm was either V-tach or VFib as patient was shocked by ED elevated troponin is suggestive of non ST segment elevation [place] cardiology was consulted continue aspirin heparin beta-andra and ARB check echocardiogram repeat EKG this morning hold statin due to elevated liver enzymes (5) NSTEMI (non-ST elevated myocardial infarction): Code(s): I21.4 - Non-ST elevation (NSTEMI) myocardial infarction Status: Acute Assessment and Plan: see above (6) CAD in [place] artery: Code(s): I25.10 - Atherosclerotic heart disease of [place] coronary artery without angina pectoris Status: Acute Assessment and Plan: see above (7) Dyslipidemia: Code(s): E78.5 - Hyperlipidemia, unspecified Status: Acute Assessment and Plan: hold statin due to elevated liver enzymes (8) Type 2 diabetes mellitus without complication, without long-term current use of insulin: Code(s): E11.9 - Type 2 diabetes mellitus without complications Status: Acute Assessment and Plan: sliding scale insulin will give 1 dose of Lantus at this time (9) Rhabdomyolysis: Code(s): M62.82 - Rhabdomyolysis Status: Acute Assessment and Plan: continue IV fluids with bicarb and monitor CK level (10) Elevated liver enzymes: Code(s): R74.8 - Abnormal levels of other serum enzymes Status: Acute Assessment and Plan: likely secondary to shock liver and rhabdomyolysis monitor levels at this time hold statin (11) Metabolic acidosis: Code(s): E87.2 - Acidosis Status: Acute Assessment and Plan: IV fluids with bicarb (12) Shock: Code(s): R57.9 - Shock, unspecified Status: Acute Assessment and Plan: likely secondary to sedation, sepsis and possibly cardiogenic continue Levophed titration to maintain mean arterial pressure decrease IV fluids as patient may be developing pulmonary edema I will add 25% albumin (13) Electrolyte abnormality: Code(s): E87.8 - Other d
[2021-08-10] MEDS: INSULIN GLARGINE (*BKC) 100 UNITS/ML 15 UNITS SUB-Q (09:09)
[2021-08-10] MEDS: MINERAL OIL/WHITE PETROLATUM OINTMENT 1 APPLIC EACH EYE ×2 (09:10→20:59)
[2021-08-10] MEDS: PANTOPRAZOLE SODIUM IV 40 MG VIAL IV PUSH (09:11)
[2021-08-10] MEDS: CALCIUM GLUC 2,000 MG/NS 100ML 2,000 MG/100 ML BAG 100 MG IVPB (09:11)
[2021-08-10] MEDS: SODIUM BICARBONATE 8.4% 150 MEQ in WATER, STERILE FOR INJECTION 950 ML 50 MEQ IV CONT (09:11)
[2021-08-10] MEDS: MAGNESIUM SULF 2 GM/WATER 50ML 2 GM/50 ML BAG IVPB (09:11)
[2021-08-10 09:39] LABS: Glucose Point of Care 201 mg/dl (65-105)
[2021-08-10] MEDS: ALBUMIN HUMAN 25% 25 GM/100 ML 100 ML IVPB ×3 (11:08→23:56)
[2021-08-10] MEDS: ASPIRIN 325 MG TABLET FEED TUBE (11:09)
--- NOTE | 2021-08-10 11:19 | PM.IMPN ---
Progress Note: A&P Assessment and Plan (1) Anoxic brain injury: Code(s): G93.1 - Anoxic brain damage, not elsewhere classified Status: Acute Assessment and Plan: Lead Recoverer following Repeat EEG (2) Shock: Code(s): R57.9 - Shock, unspecified Status: Acute Assessment and Plan: Probably cardiogenic shock secondary to V-tach/VFib NSTEMI Cardiology consult Heparin drip Currently in ICU (3) Aspiration pneumonia: Code(s): J69.0 - Pneumonitis due to inhalation of food and vomit Status: Acute Assessment and Plan: IV Zosyn (4) Acute kidney injury: Code(s): N17.9 - Acute kidney failure, unspecified Status: Acute Assessment and Plan: Most likely related to cardiogenic shock and rhabdomyolysis (5) Rhabdomyolysis: Code(s): M62.82 - Rhabdomyolysis Status: Acute Assessment and Plan: Treated with IV hydration (6) NSTEMI (non-ST elevated myocardial infarction): Code(s): I21.4 - Non-ST elevation (NSTEMI) myocardial infarction Status: Acute Assessment and Plan: Heparin drip Cardiology consult Echo (7) Acute respiratory failure: Code(s): J96.00 - Acute respiratory failure, unspecified whether with hypoxia or hypercapnia Status: Acute Assessment and Plan: Multifactorial secondary to cardiogenic shock and aspiration pneumonia currently intubated on IV antibiotic (8) Cardiopulmonary arrest: Code(s): I46.9 - Cardiac arrest, cause unspecified Status: Acute Assessment and Plan: As above (9) Elevated LFTs: Code(s): R79.89 - Other specified abnormal findings of blood chemistry Status: Acute Assessment and Plan: Probably related to shock liver monitor (10) CAD in [place] artery: Code(s): I25.10 - Atherosclerotic heart disease of [place] coronary artery without angina pectoris Status: Acute Assessment and Plan: Continue current treatment (11) Type 2 diabetes mellitus without complication, without long-term current use of insulin: Code(s): E11.9 - Type 2 diabetes mellitus without complications Status: Acute Assessment and Plan: Insulin sliding scale (12) Essential (primary) hypertension: Code(s): I10 - Essential (primary) hypertension Status: Acute Assessment and Plan: Monitor Subjective Date/time seen: 08/10/21 11:19 Interval history: 65 years old male with past medical history of coronary artery disease has witnessed cardiac arrest status post CPR presented to the ER initial rhythm was V-tach versus VFib patient also has elevated troponin treated for NSTEMI cardiology was consulted patient also has acute hypoxemic respiratory failure probably related to aspiration pneumonia started on empiric antibiotics currently patient is intubated concern for hypoxemic 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 injury 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 stacker following Patient intubated I am seeing the patient for shortness of breath Exam Narrative: Intubated Chest decreased air entry bilateral Abdomen nontender nondistended CVS S1 + S2 Negative Lower extremity edema Objective Data Vital Signs Vital Signs: Vital Signs - 24 hr 08/09/21 16:52 08/09/21 17:30 08/09/21 18:10 Temperature Pulse Rate 79 86 80 Respiratory Rate 16 16 Blood Pressure Pulse Oximetry 100 08/09/21 18:25 08/09/21 18:35 08/09/21 18:58 Temperature Pulse Rate 80 83 84 Respiratory Rate 16 16 20 Blood Pressure 109/65 Pulse Oximetry 100 08/09/21 18:59 08/09/21 19:00 08/09/21 19:02 Temperature Pulse Rate 83 84 83 Respiratory Rate 18 20 22 H Blood Pressure 115/62 Pulse Oximetry 100 100 100 08/09/21 19:06 08/09/21 19:08 08/09/21 19:10 Temperature Pulse Rate 85 84 Respiratory Rate 19 Blood Pressure 123/71 Pulse Oximetry 100 100 100 08/09/21 19:11 08/09/21 19:15 08/09/21 19:16 Temperature Pulse Rate 85 84 85 Respiratory Rate 17 17 25 H Blood
--- NOTE | 2021-08-10 13:23 | PM.CNCAR ---
Assessment and Plan Assessment and plan (1) Anoxic brain injury: Code(s): G93.1 - Anoxic brain damage, not elsewhere classified Status: Acute Assessment and Plan: Secondary to cardiopulmonary arrest. Bystander CPR was initiated. Patient undergoing cooling protocol at this point (2) NSTEMI (non-ST elevated myocardial infarction): Code(s): I21.4 - Non-ST elevation (NSTEMI) myocardial infarction Status: Acute Assessment and Plan: Troponins have essentially peaked 1.68. Continue aspirin, heparin, supportive care, pressors and wean as able. Continuing including protocol. Awaiting neurological recovery further evaluation. Will need coronary angiogram if meaningful neurological recovery (3) CAD in [place] artery: Code(s): I25.10 - Atherosclerotic heart disease of [place] coronary artery without angina pectoris Status: Acute Assessment and Plan: Previous PCI to the RCA. Moderate disease in the circumflex and LAD. (4) Cardiopulmonary arrest: Code(s): I46.9 - Cardiac arrest, cause unspecified Status: Acute Assessment and Plan: Status post cardiopulmonary arrest. No strips are available better appears that he was in VT or VF initially and subsequently shocked into PEA. Awaiting echo (5) Hypertension associated with diabetes: Code(s): E11.59 - Type 2 diabetes mellitus with other circulatory complications; I15.2 - Hypertension secondary to endocrine disorders Status: Acute (6) Hyperlipidemia associated with type 2 diabetes mellitus: Code(s): E11.69 - Type 2 diabetes mellitus with other specified complication; E78.5 - Hyperlipidemia, unspecified Status: Acute Assessment and Plan: Resume statin when able. History of Present Illness History of Present Illness Consult date/time: 08/10/21 13:23 Requesting physician: Glynn Stewart DO Consult reason: Other (Cardiac arrest) Reason For Visit: cardiopulmonary arrest Narrative: Reason consultation: Cardiac arrest Date of service 08/10/2021 Requesting provider: Dr. Stewart History patient is 65-year-old male who has a history of coronary disease. He follows with Dr. Bullard as an outpatient but has not been seen in the office since January 2020. It does appear that he misses appointments is not always compliant with medications or follow-up. He does have a history of a drug-eluting stent to the mid RCA for subtotal occlusion dating back to 2012. EF at that time was 45-50%. He also had moderate LAD and circumflex disease at that time. He had a stress test in 2019 which showed a small fixed inferolateral defect thought to be artifactual. No ischemia. History is obtained by reviewing chart record and talking to the patient's . Yesterday he was helping load up some clothing items whenever he was standing at the door and he started to slump over. His caught him. He went down to the floor and was unconscious. His initiated CPR at that time. The please for the 1st on scene and AED was placed and was told it was a shockable rhythm and so 1 shock was delivered. Reportedly this was for a VT or VF but there are no rhythm strips to go by. Patient was then reportedly in PE a. He was actually breathing and was brought to the emergency department by EMS and was intubated in the ED. he has been initiated on cooling protocol for which he remains. Patient's does state that the day before this event he complained of severe back pain. He has been short of breath with staff's which is not new or different. He does have chest pain which was described as indigestion usually after eating meals. He does have some ankle edema which is not significant but relatively new for him. Reportedly no palpitations. Review of Systems Review of Systems: All systems reviewed & are unremarkable except as noted in HPI and below ROS unobtainable: Yes unobtainable due to endotracheal tube Constituti
[2021-08-10 13:38] LABS: Glucose Point of Care 218 mg/dl (65-105)
[2021-08-10 14:18] LABS: Partial Thromboplastin Time > 200.0 SECONDS (22.3-36.8)
[2021-08-10 16:50] LABS: Partial Thromboplastin Time > 200.0 SECONDS (22.3-36.8)
[2021-08-10] MEDS: FENTANYL 2,500MCG/NS250ML(*CRX 2,500 MCG/250 ML BAG 12.5 MCG IV CONT (16:51)
[2021-08-10] MEDS: PROPOFOL IV EMULSION 100 ML 8.84 MG IV CONT ×2 (16:52→21:47)
[2021-08-10] MEDS: NOREPINEPHRINE 8 MG/D5W 250 ML 8 MG/250 ML BAG 11.25 MG IV CONT (16:54)
[2021-08-10 17:51] LABS: Hematocrit 39.6 % (42.0-52.0); Hemoglobin 12.6 g/dL (14.0-18.0); Mean Corpuscular HGB Conc 31.8 g/dl (32-36); Mean Corpuscular Hemoglobin 28.6 pg (26-34); Mean Corpuscular Volume 89.8 fl (80-100); Mean Platelet Volume 9.6 fl (7.4-10.4); Platelet Count Result 207 k/mm3 (150-375); Red Blood Count 4.41 M/mm3 (4.6-6.20); Red Cell Distribution Width 13.8 % (11.5-14.5); White Blood Count 5.8 K/mm3 (4.5-10.0)
[2021-08-10 18:04] LABS: Anion Gap 7 mmol/L (8-16); Blood Urea Nitrogen 28 mg/dL (9-20); Calcium 7.8 mg/dL (8.4-10.2); Carbon Dioxide 27 mmol/L (22-30); Chloride 105 mmol/L (98-107); Creatine Kinase 1098 U/L (55-170); Estimated CRCL calculation 50 ml/min; Estimated Glomerular Filt Rate > 60; Glucose 236 mg/dL (65-110); Magnesium 2.4 mg/dL (1.6-2.3); Phosphorus 3.3 mg/dL (2.5-4.5); Potassium 4.1 mmol/L (3.4-5.0); Sodium 139 mmol/L (137-145)
[2021-08-10 18:05] LABS: INR 1.4; Prothrombin Time 16.2 Seconds (11.1-14.7)
--- NOTE | 2021-08-10 18:38 | PC.NURSE ---
Notified Dr. Irvin about elevated PTT levels we were obtaining from the pts IJ. Could not obtain a PTT from the riveter due to the collection tubes clotting off. Received orders to pause the heparin drip for 4 hours and then draw labs from the [facility].
[2021-08-10 18:44] LABS: Glucose Point of Care 200 mg/dl (65-105)
[2021-08-10 20:46] LABS: Glucose Point of Care 229 mg/dl (65-105)
[2021-08-10 21:04] LABS: Mean Platelet Volume 9.4 fl (7.4-10.4); Platelet Count Result 153 k/mm3 (150-375)
[2021-08-10 21:16] LABS: Fibrinogen 375 mg/dl (215-510); INR 1.4; Prothrombin Time 16.4 Seconds (11.1-14.7)
[2021-08-10 21:18] LABS: Partial Thromboplastin Time 127.1 SECONDS (22.3-36.8)
--- NOTE | 2021-08-10 21:45 | PC.NURSE ---
PTT resulted at 127.1. Dr. Irvin notified and this RN received orders to continue heparin protocol as ordered. Will continue to monitor.
[2021-08-11] VITALS (63 sets, daily range): BP systolic 79–162; BP diastolic 50–89; PULSE 44–95; RESP 22–26; TEMP 33.1–38.7; O2SAT 10–100
[2021-08-11] MEDS: INSULIN ASPART (*BKC) 100 UNITS/ML SUB-Q (00:06)
[2021-08-11 00:11] LABS: Glucose Point of Care 235 mg/dl (65-105)
[2021-08-11] MEDS: PROPOFOL IV EMULSION 100 ML 8.84 MG IV CONT ×2 (02:47→13:39)
[2021-08-11] MEDS: HEPARIN SOD/D5W 100 UNITS/ML 25,000 UNITS/250 ML BAG 9 UNITS IV CONT (02:48)
--- NOTE | 2021-08-11 03:26 | PC.NURSE ---
Rewarming phase started at 0320. Patient not to exceed 2 degrees Celcius per hour per hypothermia protocol.
[2021-08-11] MEDS: SODIUM BICARBONATE 8.4% 150 MEQ in WATER, STERILE FOR INJECTION 950 ML 50 MEQ IV CONT (04:07)
[2021-08-11 04:39] LABS: Hematocrit 32.9 % (42.0-52.0); Hemoglobin 11.1 g/dL (14.0-18.0); Mean Corpuscular HGB Conc 33.7 g/dl (32-36); Mean Corpuscular Hemoglobin 28.8 pg (26-34); Mean Corpuscular Volume 85.5 fl (80-100); Mean Platelet Volume 9.9 fl (7.4-10.4); Platelet Count Result 129 k/mm3 (150-375); Red Blood Count 3.85 M/mm3 (4.6-6.20); Red Cell Distribution Width 13.6 % (11.5-14.5); White Blood Count 4.2 K/mm3 (4.5-10.0)
[2021-08-11 04:52] LABS: Anion Gap 8 mmol/L (8-16); Blood Urea Nitrogen 29 mg/dL (9-20); Calcium 8.1 mg/dL (8.4-10.2); Carbon Dioxide 28 mmol/L (22-30); Chloride 103 mmol/L (98-107); Creatine Kinase 756 U/L (55-170); Estimated CRCL calculation 54 ml/min; Estimated Glomerular Filt Rate > 60; Glucose 181 mg/dL (65-110); Magnesium 2.4 mg/dL (1.6-2.3); Phosphorus 3.6 mg/dL (2.5-4.5); Potassium 3.9 mmol/L (3.4-5.0); Sodium 139 mmol/L (137-145)
[2021-08-11 04:53] LABS: INR 1.7; Prothrombin Time 19.2 Seconds (11.1-14.7)
[2021-08-11 05:05] LABS: Alveolar/Arterial O2 Gradient 129.8 mmHg; Base Excess ABG 2.8 mEq/l (+/-2.0); Carboxyhemoglobin 0.4 % THb (0-2.0); Device VENTILATOR; Fractional Inspired Oxygen 40 %; HCO3 ABG 27.8 mEq/l (22.0-26.0); Methemoglobin ABG 0.3 %THb (0-1.5); Modified Allen's Test Pass; Oxygen Saturation ABG 97.9 % (95.0-100.0); Oxyhemoglobin 97.1 % THb (90.0-100.0); PCO2 ABG 43.7 mmHg (35.0-45.0); PO2 ABG 105.1 mmHg (80.0-100.0); PO2 FiO2 Ratio Arterial Blood 2.63 %; Reduced Hemoglobin 2.2 %THb (0-5.0); Site Drawn LEFT RADIAL; Total Hemoglobin 16.8 g/dL (12.0-18.0); pH ABG 7.421 (7.350-7.450)
[2021-08-11 05:06] LABS: Arterial Blood Gas PEEP 8 cmH2O; Arterial Blood Gas Tidal Volume 450 ml; Arterial Blood Gas Vent Mode CMV; Arterial Blood Gas Ventilator rate 22 /MIN
[2021-08-11 05:11] LABS: Partial Thromboplastin Time > 200.0 SECONDS (22.3-36.8)
[2021-08-11] MEDS: ALBUMIN HUMAN 25% 25 GM/100 ML 100 ML IVPB ×4 (05:16→23:09)
[2021-08-11] MEDS: PIPERACILLIN/TAZOBACTAM SOD 4.5 GM in SODIUM CHLORIDE 0.9% IV 100 ML 200 ML IVPB ×4 (05:17→23:34)
[2021-08-11 07:20] LABS: Glucose Point of Care 192 mg/dl (65-105)
[2021-08-11] MEDS: CENTRAL LINE FLUSH 10 ML IV PUSH ×3 (07:41→20:30)
--- NOTE | 2021-08-11 07:46 | PC.NURSE ---
Spoke with Dr. Irvin regarding supratherapeutic PTT. Heparin on hold since 519 this AM. New order to continue to hold Heparin until after Abd, chest and head CT
--- NOTE | 2021-08-11 08:17 | WPDINTPN ---
Progress Note: A&P Assessment and Plan (1) Acute respiratory failure: Code(s): J96.00 - Acute respiratory failure, unspecified whether with hypoxia or hypercapnia Status: Acute Assessment and Plan: Acute Respiratory failure secondary to cardiopulmonary, arrest, pulmonary edema and suspected aspiration pneumonia Continue full mechanical ventilation support to prevent hypoxemia/hypercarbia and end organ damage. ABG and PCXR reviewed Vent settings reviewed and will increase PEEP to 8 and respiratory rate increased to 22. Currently at 40% FiO2 Metabolic acidosis improved and will discontinue bicarb Weaning will depend on neurological improvement continue empiric Zosyn for aspiration pneumonia blood cultures already done and sputum culture is ordered patient's echocardiogram shows right ventricular enlargement. As patient's initial rhythm is not confirmed, I will do CT angiogram chest to rule out PE. Patient has been on heparin infusion until now for non-STEMI. Patient has other possible etiologies to explain hypoxia and hypotension also check lower extremity Dopplers as patient does have little bit of edema in both legs (2) Aspiration pneumonia: Code(s): J69.0 - Pneumonitis due to inhalation of food and vomit Status: Acute Assessment and Plan: see above (3) Anoxic brain injury: Code(s): G93.1 - Anoxic brain damage, not elsewhere classified Status: Acute Assessment and Plan: patient was not Demonstrating any purposeful movement in ER. He was started on sedatives for mechanical ventilation the ED. When patient arrived to ICU he was reassessed by turning his sedation of but he did not demonstrate any purposeful movement again hence patient was started on TTM protocol. He reached his goal temperature at 3:30 a.m. 08/10 he has completed 24 hours of hypothermia and is being rewarmed at this time. initial head CT was negative will repeat head CT and EEG today currently sedated with propofol and fentanyl and will perform complete sedation holiday once patient back from scan (4) Cardiopulmonary arrest: Code(s): I46.9 - Cardiac arrest, cause unspecified Status: Acute Assessment and Plan: patient does have history of coronary disease along with several risk factors. It appears that the initial rhythm was either V-tach or VFib as patient was shocked by ED elevated troponin is suggestive of non ST segment elevation [place] cardiology was consulted continue aspirin beta-andra and ARB heparin has been discontinued hold statin due to elevated liver enzymes echocardiogram showed Complete two-dimensional, color flow and Doppler transthoracic echocardiogram is performed. 2. Left ventricular systolic function is low normal, estimated at 50-55%. 3. Left ventricular chamber dimension is normal. 4. There is severely increased left ventricular wall thickness. 5. The left ventricular diastolic function is grade II diastolic dysfunction. 6. The inferior wall is hypokinetic. 7. Right ventricular chamber dimension is mildly enlarged. 8. Left atrial chamber dimension is mildly enlarged. 9. There is mild tricuspid valve regurgitation. (5) NSTEMI (non-ST elevated myocardial infarction): Code(s): I21.4 - Non-ST elevation (NSTEMI) myocardial infarction Status: Acute Assessment and Plan: see above (6) CAD in [place] artery: Code(s): I25.10 - Atherosclerotic heart disease of [place] coronary artery without angina pectoris Status: Acute Assessment and Plan: see above (7) Dyslipidemia: Code(s): E78.5 - Hyperlipidemia, unspecified Status: Acute Assessment and Plan: hold statin due to elevated liver enzymes (8) Type 2 diabetes mellitus without complication, without long-term current use of insulin: Code(s): E11.9 - Type 2 diabetes mellitus without complications Status: Acute Assess
[2021-08-11] MEDS: SODIUM CHLORIDE 0.9% IV 1,000 ML 50 ML IV CONT (08:20)
[2021-08-11] MEDS: PANTOPRAZOLE SODIUM IV 40 MG VIAL IV PUSH ×2 (08:23→20:32)
[2021-08-11] MEDS: MINERAL OIL/WHITE PETROLATUM OINTMENT 1 APPLIC EACH EYE ×2 (08:23→20:31)
[2021-08-11] MEDS: ASPIRIN 325 MG TABLET FEED TUBE (08:23)
--- NOTE | 2021-08-11 08:25 | PC.NURSE ---
Levophed infusing at 3mcg/min on pump. Documentation by night RN was documented as 1.6mcg/min. BP of 107/70 at 0800. Levophed decreased to 2mcg/min on pump and documented appropriately.
[2021-08-11] MEDS: INSULIN GLARGINE (*BKC) 100 UNITS/ML 10 UNITS SUB-Q (08:43)
[2021-08-11 08:58] LABS: Troponin I 0.368 ng/mL (0.000-0.034)
--- NOTE | 2021-08-11 10:20 | PC.NURSE ---
Urine output for 1000 is not accurate d/t transportation of patient to and from CT
--- NOTE | 2021-08-11 10:43 | PM.PNCARD ---
Progress Note: A&P Additional Plan 65-year-old patient with: History of known coronary disease with previous a right coronary intervention. Presented to the hospital following out of hospital VF and has been resuscitated. Patient is in the ICU. We await for evidence of meaningful neurological recovery before determining that follow-up coronary angiography would be beneficial. patient's platelet count has declined significantly since admission as there has been no AMI we will stop heparin Geovanni Berger MD [facility] Subjective Date/time seen: date of service:08/11/21 10:43 Interval history: This is a 65-year-old gentleman with: Out of hospital cardiac arrest by report was in ventricular fibrillation and was intubated in the emergency room and then placed in the ICU. He is finished with hypothermia protocol and remains intubated on the ventilator. 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 Patient has history of coronary artery disease and history of RCA intervention in the remote past. Has not been compliant or consistent with follow-up in our office with Dr. Bullard. family at the bedside this morning Exam Const: Other: intubated otherwise healthy-appearing black male on the ventilator in ICU room 6. HENMT: Mouth: Yes moist mucous membranes Eyes: Sclera: sclerae normal Neck: Neck: supple and no JVD Resp: Effort & Inspection: normal respiratory effort Other: Few central rhonchi no Cardio: Rate: regular rate Rhythm: regular rhythm Other: no murmur audible GI: GI Palp: Yes Soft to palpation Auscultation: normal bowel sounds Skin: General skin exam: normal color Neuro: Other: unresponsive on ventilator Extrem: Other: no edema good distal pulses Objective Data Vital Signs Vital Signs: Vital Signs - 24 hr 08/10/21 11:00 08/10/21 12:00 08/10/21 12:42 Temperature 32.7 C L 32.2 C L Pulse Rate 46 L 54 L 50 L Respiratory Rate 22 H 22 H Blood Pressure 101/68 109/69 112/66 Pulse Oximetry 98 98 08/10/21 13:00 08/10/21 13:51 08/10/21 14:00 Temperature 32.6 C L Pulse Rate 51 L 54 L 54 L Respiratory Rate 22 H 22 H Blood Pressure 98/68 L 99/67 L Pulse Oximetry 99 98 99 08/10/21 14:11 08/10/21 14:26 08/10/21 15:00 Temperature 33.7 C L Pulse Rate 77 52 L 49 L Respiratory Rate 22 H Blood Pressure 118/70 104/62 Pulse Oximetry 96 100 08/10/21 15:23 08/10/21 15:55 08/10/21 16:00 Temperature 32.7 C L Pulse Rate 48 L 44 L 43 L Respiratory Rate 22 H 22 H Blood Pressure 121/86 103/68 Pulse Oximetry 95 08/10/21 16:47 08/10/21 16:48 08/10/21 16:51 Temperature Pulse Rate 44 L 44 L 44 L Respiratory Rate 22 H 22 H Blood Pressure Pulse Oximetry 98 08/10/21 16:52 08/10/21 16:54 08/10/21 17:00 Temperature 32.3 C L Pulse Rate 44 L 44 L 44 L Respiratory Rate 22 H 22 H Blood Pressure 114/73 128/77 Pulse Oximetry 99 08/10/21 18:00 08/10/21 18:28 08/10/21 18:29 Temperature 33.0 C L Pulse Rate 52 L 53 L Respiratory Rate 22 H 22 H Blood Pressure 107/66 120/74 Pulse Oximetry 100 08/10/21 19:00 08/10/21 19:46 08/10/21 19:55 Temperature 34.0 C L Pulse Rate 53 L 51 L 45 L Respiratory Rate 22 H 22 H Blood Pressure 126/72 146/86 H Pulse Oximetry 100 08/10/21 20:00 08/10/21 20:02 08/10/21 20:35 Temperature 33.5 C L Pulse Rate 50 L 50 L Respiratory Rate 22 H Blood Pressure 111/66 Pulse Oximetry 100 100 100 08/10/21 21:00 08/10/21 21:15 08/10/21 21:46 Temperature 32.6 C L 32.4 C L Pulse Rate 49 L 46 L 45 L Respiratory Rate 22 H 22 H 22 H Blood Pressure 206/89 H 106/72 Pulse Oximetry 99 100 08/10/21 21:47 08/10/21 21:49 08/10/21 22:00 Temperature 32.2 C L Pulse Rate 46 L 46 L 50 L Respiratory Rate 22 H 22 H 22 H Blood Pressure 179/75 H Pulse Oximetry 99 08/10/21 22:15 08/10/21 23:00 08/10/21 23:10 Amber
--- NOTE | 2021-08-11 11:01 | PM.IMPN ---
Progress Note: A&P Assessment and Plan (1) Anoxic brain injury: Code(s): G93.1 - Anoxic brain damage, not elsewhere classified Status: Acute Assessment and Plan: Snow Maker following Repeat EEG (2) Shock: Code(s): R57.9 - Shock, unspecified Status: Acute Assessment and Plan: Probably cardiogenic shock secondary to V-tach/VFib NSTEMI Cardiology consult hold Heparin drip penting hitswork up Currently in ICU (3) Aspiration pneumonia: Code(s): J69.0 - Pneumonitis due to inhalation of food and vomit Status: Acute Assessment and Plan: IV Zosyn ct multifocal pneumonia (4) Acute kidney injury: Code(s): N17.9 - Acute kidney failure, unspecified Status: Acute Assessment and Plan: Most likely related to cardiogenic shock and rhabdomyolysis (5) Rhabdomyolysis: Code(s): M62.82 - Rhabdomyolysis Status: Acute Assessment and Plan: Treated with IV hydration (6) NSTEMI (non-ST elevated myocardial infarction): Code(s): I21.4 - Non-ST elevation (NSTEMI) myocardial infarction Status: Acute Assessment and Plan: hold Heparin drip as above Cardiology consult Echo (7) Acute respiratory failure: Code(s): J96.00 - Acute respiratory failure, unspecified whether with hypoxia or hypercapnia Status: Acute Assessment and Plan: Multifactorial secondary to cardiogenic shock and aspiration pneumonia currently intubated on IV antibiotic (8) Cardiopulmonary arrest: Code(s): I46.9 - Cardiac arrest, cause unspecified Status: Acute Assessment and Plan: As above (9) Elevated LFTs: Code(s): R79.89 - Other specified abnormal findings of blood chemistry Status: Acute Assessment and Plan: Probably related to shock liver monitor (10) CAD in [place] artery: Code(s): I25.10 - Atherosclerotic heart disease of [place] coronary artery without angina pectoris Status: Acute Assessment and Plan: Continue current treatment (11) Type 2 diabetes mellitus without complication, without long-term current use of insulin: Code(s): E11.9 - Type 2 diabetes mellitus without complications Status: Acute Assessment and Plan: Insulin sliding scale (12) Essential (primary) hypertension: Code(s): I10 - Essential (primary) hypertension Status: Acute Assessment and Plan: Monitor Subjective Date/time seen: 08/11/21 11:01 Interval history: 65 years old male with past medical history of coronary artery disease has witnessed cardiac arrest status post CPR presented to the ER initial rhythm was V-tach versus VFib patient also has elevated troponin treated for NSTEMI cardiology was consulted patient also has acute hypoxemic respiratory failure probably related to aspiration pneumonia started on empiric antibiotics currently patient is intubated 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 pending workup Patient intubated I am seeing the patient for shortness of breath Exam Narrative: Intubated Chest decreased air entry bilateral Abdomen nontender nondistended CVS S1 + S2 Negative Lower extremity edema Objective Data Vital Signs Vital Signs: Vital Signs - 24 hr 08/10/21 12:00 08/10/21 12:42 08/10/21 13:00 Temperature 90 F L 90.6 F L Pulse Rate 54 L 50 L 51 L Respiratory Rate 22 H 22 H Blood Pressure 109/69 112/66 98/68 L Pulse Oximetry 98 99 08/10/21 13:51 08/10/21 14:00 08/10/21 14:11 Temperature Pulse Rate 54 L 54 L 77 Respiratory Rate 22 H Blood Pressure 99/67 L Pulse Oximetry 98 99 96 08/10/21 14:26 08/10/21 15:00 08/10/21 15:23 Temperature 92.7 F L Pulse Rate 52 L 49 L 48 L Respiratory Rate 22 H Blood Pressure 118/70 104/62 121/86 Pulse Oximetry 100 08/10/21 15:55 08/10/21 16:00 08/10/21 16:47 Temperature 91 F L Pulse Rate 44 L 43 L 44 L Respiratory Rate 22
--- NOTE | 2021-08-11 11:22 | PCFNICU ---
ICU Rounding Note: Pt current nutrition is Vital AF 1.2 at 20 ml/hr. Last recorded weight is 97.2 kg, up from 93.1 kg on admit. Bowel Motility:+BM reported /2 Labs Reviewed:Mg 2.4, Hct 32.9,Hgb 11.1,Glu 181,BUN 29 Meds Noted:Levophed, Protonix, NS Skin: WNL Additional Notes: Patient remains on mechanical vent. Tube feedings starting of Vital AF 1.2 at 20 ml/hr, goal rate at 50 ml/hr. Propofol is currently on hold. Plans for sedation to be discontinued. Recommend goal rate of tube feeding to increased to 60 ml/hr over 22 hours, providing 1584 kcals/99 gms protein/1071 ml water. Free water flush 30 ml q 4 hours. Plans for EEG today. Following daily in ICU rounds. Will monitor every Monday and Monday.
[2021-08-11 11:56] LABS: Glucose Point of Care 155 mg/dl (65-105)
[2021-08-11] MEDS: FONDAPARINUX SODIUM 2.5 MG/0.5 ML SYRINGE SUB-Q (12:20)
[2021-08-11 12:26] LABS: Hemoglobin 10.4 g/dL (14.0-18.0); Mean Corpuscular HGB Conc 32.5 g/dl (32-36); Mean Corpuscular Hemoglobin 29.1 pg (26-34); Mean Corpuscular Volume 89.4 fl (80-100); Mean Platelet Volume 10.4 fl (7.4-10.4); Platelet Count Result 118 k/mm3 (150-375); Red Blood Count 3.58 M/mm3 (4.6-6.20); Red Cell Distribution Width 14.1 % (11.5-14.5); White Blood Count 4.1 K/mm3 (4.5-10.0)
[2021-08-11] MEDS: ACETAMINOPHEN ELIXIR 325 MG/10.15 ML UDC 650 MG PO (15:16)
--- NOTE | 2021-08-11 15:30 | PCCPR ---
significant neurological damage post arrest
[2021-08-11 16:05] LABS: Glucose Point of Care 128 mg/dl (65-105)
[2021-08-11 17:41] LABS: Hematocrit 32.1 % (42.0-52.0); Hemoglobin 10.1 g/dL (14.0-18.0); Mean Corpuscular HGB Conc 31.5 g/dl (32-36); Mean Corpuscular Hemoglobin 28.5 pg (26-34); Mean Corpuscular Volume 90.7 fl (80-100); Mean Platelet Volume 9.8 fl (7.4-10.4); Platelet Count Result 107 k/mm3 (150-375); Red Blood Count 3.54 M/mm3 (4.6-6.20); Red Cell Distribution Width 14.3 % (11.5-14.5); White Blood Count 4.7 K/mm3 (4.5-10.0)
[2021-08-11 17:52] LABS: Anion Gap 9 mmol/L (8-16); Blood Urea Nitrogen 30 mg/dL (9-20); Calcium 7.8 mg/dL (8.4-10.2); Carbon Dioxide 29 mmol/L (22-30); Chloride 103 mmol/L (98-107); Creatine Kinase 701 U/L (55-170); Estimated CRCL calculation 50 ml/min; Estimated Glomerular Filt Rate 53; Glucose 160 mg/dL (65-110); Magnesium 2.2 mg/dL (1.6-2.3); Phosphorus 5.1 mg/dL (2.5-4.5); Sodium 141 mmol/L (137-145)
[2021-08-11 18:03] LABS: Prothrombin Time 21.6 Seconds (11.1-14.7)
[2021-08-11] MEDS: PROPOFOL IV EMULSION 100 ML 14.73 MG IV CONT (20:31)
[2021-08-11 20:40] LABS: Glucose Point of Care 153 mg/dl (65-105)
[2021-08-11 23:43] LABS: Glucose Point of Care 120 mg/dl (65-105)
[2021-08-12] VITALS (36 sets, daily range): BP systolic 115–172; BP diastolic 63–91; PULSE 68–96; RESP 17–38; TEMP 37.4–38.4; O2SAT 91–100
[2021-08-12] MEDS: PROPOFOL IV EMULSION 100 ML 17.68 MG IV CONT (02:39)
[2021-08-12] MEDS: SODIUM CHLORIDE 0.9% IV 1,000 ML 50 ML IV CONT (02:42)
[2021-08-12] MEDS: ACETAMINOPHEN ELIXIR 325 MG/10.15 ML UDC 650 MG PO (03:54)
[2021-08-12 04:54] LABS: Hematocrit 30.4 % (42.0-52.0); Hemoglobin 9.5 g/dL (14.0-18.0); Mean Corpuscular HGB Conc 31.3 g/dl (32-36); Mean Corpuscular Hemoglobin 28.6 pg (26-34); Mean Corpuscular Volume 91.6 fl (80-100); Mean Platelet Volume 10.5 fl (7.4-10.4); Platelet Count Result 101 k/mm3 (150-375); Red Blood Count 3.32 M/mm3 (4.6-6.20); Red Cell Distribution Width 14.6 % (11.5-14.5); White Blood Count 5.5 K/mm3 (4.5-10.0)
[2021-08-12] MEDS: ALBUMIN HUMAN 25% 25 GM/100 ML 100 ML IVPB (05:00)
[2021-08-12 05:05] LABS: Alveolar/Arterial O2 Gradient 141.3 mmHg; Base Excess ABG -0.3 mEq/l (+/-2.0); Carboxyhemoglobin 0.3 % THb (0-2.0); Fractional Inspired Oxygen 40 %; HCO3 ABG 24.8 mEq/l (22.0-26.0); Methemoglobin ABG 0.2 %THb (0-1.5); Oxygen Content ABG 20.2 %vol (16.0-22.0); Oxygen Saturation ABG 97.2 % (95.0-100.0); Oxyhemoglobin 96.2 % THb (90.0-100.0); PCO2 ABG 42.3 mmHg (35.0-45.0); PO2 ABG 95.3 mmHg (80.0-100.0); PO2 FiO2 Ratio Arterial Blood 2.38 %; Reduced Hemoglobin 3.3 %THb (0-5.0); Total Hemoglobin 14.9 g/dL (12.0-18.0); pH ABG 7.386 (7.350-7.450)
[2021-08-12 05:06] LABS: Arterial Blood Gas PEEP 8 cmH2O; Arterial Blood Gas Tidal Volume 450 ml; Arterial Blood Gas Vent Mode CMV; Arterial Blood Gas Ventilator rate 22 /MIN; Device VENTILATOR; Modified Allen's Test Pass; Site Drawn LEFT RADIAL
[2021-08-12 05:09] LABS: Alanine Aminotransferase 236 U/L (4-50); Albumin Level 4.2 g/dL (3.5-5.1); Alkaline Phosphatase 61 U/L (38-126); Anion Gap 11 mmol/L (8-16); Aspartate Amino Transferase 175 U/L (17-59); Bilirubin,Total 1.2 mg/dL (0.2-1.3); Blood Urea Nitrogen 27 mg/dL (9-20); Calcium 7.9 mg/dL (8.4-10.2); Carbon Dioxide 28 mmol/L (22-30); Chloride 105 mmol/L (98-107); Creatine Kinase 628 U/L (55-170); Estimated CRCL calculation 50 ml/min; Estimated Glomerular Filt Rate 53; Glucose 94 mg/dL (65-110); Magnesium 2.3 mg/dL (1.6-2.3); Phosphorus 4.7 mg/dL (2.5-4.5); Potassium 3.5 mmol/L (3.4-5.0); Sodium 144 mmol/L (137-145)
[2021-08-12 05:11] LABS: INR 1.9; Prothrombin Time 21.1 Seconds (11.1-14.7)
[2021-08-12] MEDS: PIPERACILLIN/TAZOBACTAM SOD 4.5 GM in SODIUM CHLORIDE 0.9% IV 100 ML 200 ML IVPB (05:36)
[2021-08-12] MEDS: CENTRAL LINE FLUSH 10 ML IV PUSH ×3 (05:37→20:54)
[2021-08-12] MEDS: PROPOFOL IV EMULSION 100 ML 20.62 MG IV CONT (06:21)
[2021-08-12 07:57] LABS: Glucose Point of Care 267 mg/dl (65-105)
[2021-08-12] MEDS: FONDAPARINUX SODIUM 2.5 MG/0.5 ML SYRINGE SUB-Q (09:04)
[2021-08-12] MEDS: ASPIRIN 325 MG TABLET FEED TUBE (09:04)
[2021-08-12] MEDS: INSULIN ASPART (*BKC) 100 UNITS/ML SUB-Q ×3 (09:04→20:53)
[2021-08-12] MEDS: MINERAL OIL/WHITE PETROLATUM OINTMENT 1 APPLIC EACH EYE ×2 (09:04→20:54)
[2021-08-12] MEDS: PANTOPRAZOLE SODIUM IV 40 MG VIAL IV PUSH ×2 (09:05→20:54)
[2021-08-12] MEDS: dexmedeTOMIDine 400 MCG/100 ML 400 MCG/100 ML BAG IV CONT (10:30)
--- NOTE | 2021-08-12 10:30 | PCNEURO ---
EEE on hold due to patients body movements and trying to sit up in bed. Unable to be cooperative. Nurse will notify neurology dept if condition changes.
--- NOTE | 2021-08-12 11:01 | PM.IMPN ---
Progress Note: A&P Assessment and Plan (1) Anoxic brain injury: Code(s): G93.1 - Anoxic brain damage, not elsewhere classified Status: Acute Assessment and Plan: Mother Repairer following Repeat EEG pending Repeat CT scan no evidence of anoxic brain injury (2) Shock: Code(s): R57.9 - Shock, unspecified Status: Acute Assessment and Plan: Probably cardiogenic shock secondary to V-tach/VFib NSTEMI Cardiology consult hold Heparin drip penting hits work up Continue Arixtra Currently in ICU (3) Aspiration pneumonia: Code(s): J69.0 - Pneumonitis due to inhalation of food and vomit Status: Acute Assessment and Plan: IV Unasyn started on 08/12/2021 DC Zosyn IV vancomycin started on 08/12/2021 ct multifocal pneumonia (4) Acute kidney injury: Code(s): N17.9 - Acute kidney failure, unspecified Status: Acute Assessment and Plan: Most likely related to cardiogenic shock and rhabdomyolysis (5) Rhabdomyolysis: Code(s): M62.82 - Rhabdomyolysis Status: Acute Assessment and Plan: Treated with IV hydration (6) NSTEMI (non-ST elevated myocardial infarction): Code(s): I21.4 - Non-ST elevation (NSTEMI) myocardial infarction Status: Acute Assessment and Plan: hold Heparin drip as above Cardiology consult Echo (7) Acute respiratory failure: Code(s): J96.00 - Acute respiratory failure, unspecified whether with hypoxia or hypercapnia Status: Acute Assessment and Plan: Multifactorial secondary to cardiogenic shock and aspiration pneumonia currently intubated on IV antibiotic (8) Cardiopulmonary arrest: Code(s): I46.9 - Cardiac arrest, cause unspecified Status: Acute Assessment and Plan: As above (9) Elevated LFTs: Code(s): R79.89 - Other specified abnormal findings of blood chemistry Status: Acute Assessment and Plan: Probably related to shock liver monitor (10) CAD in [place] artery: Code(s): I25.10 - Atherosclerotic heart disease of [place] coronary artery without angina pectoris Status: Acute Assessment and Plan: Continue current treatment (11) Type 2 diabetes mellitus without complication, without long-term current use of insulin: Code(s): E11.9 - Type 2 diabetes mellitus without complications Status: Acute Assessment and Plan: Insulin sliding scale (12) Essential (primary) hypertension: Code(s): I10 - Essential (primary) hypertension Status: Acute Assessment and Plan: Monitor Additional Plan DVT prophylaxis - heparin is on hold at this time Stress ulcer prophylaxis - PPI Nutrition - start tube feeds Code Status - Full Code Subjective Date/time seen: 08/12/21 11:01 Interval history: 65 years old male with past medical history of coronary artery disease has witnessed cardiac arrest status post CPR presented to the ER initial rhythm was V-tach versus VFib patient also has elevated troponin treated for NSTEMI cardiology was consulted patient also has acute hypoxemic respiratory failure probably related to aspiration pneumonia started on empiric antibiotics currently patient is intubated 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 concern for hit pending workup Patient intubated on Precedex Levophed was discontinued on 08/11/2021 I am seeing the patient for shortness of breath Exam Narrative: Intubated Chest decreased air entry bilateral Abdomen nontender nondistended CVS S1 + S2 Negative Lower extremity edema Objective Data Vital Signs Vital Signs: Vital Signs - 24 hr 08/11/21 11:26 08/11/21 11:40 08/11/21 12:00 Temperature 99.4 F Pulse Rate 85 89 80 Respiratory Rate 22 H 26 H Blood Pressure 105/67 Pulse Oximetry 94 93 08/11/21 12:19 08/11/21 12:40 08/11/21 13:00 Temperature Pulse Rate 95 74 74 Respiratory Rate 26 H 22 H 22 H Blood
--- NOTE | 2021-08-12 11:40 | PCFNICU ---
ICU Rounding Note: Pt current nutrition is Vital AF 1.2 at 50 ml/hr. Last recorded weight is 98.2 kg, up from 93.1 kg on admit. Bowel Motility:Per nursing last BM noted on 08/09. Reglan added today. Labs Reviewed:Hgb 9.5, Hct 30.4,GFR 53, BUN 27, PO4 4.7, Cr 1.6 Meds Noted:Lantus, Protonix, NovoLog,NS, Vancomycin, Propofol at 35 dux=179 kcals, Reglan Skin: WNL Additional Notes: Patient remains on mechanical vent and tube feedings of Vital AF 1.2 at 50 ml/hr over 22 hours. Current Propofol infusion at 35 mcg providing an additional 750 kcals. Total nutrition at this time: 1864 kcals/82 gms protein/892 ml water. Free water flush 30 ml q 4 hours. Following daily in ICU rounds. Will monitor every Monday and Monday.
--- NOTE | 2021-08-12 12:03 | WPDINTPN ---
Progress Note: A&P Assessment and Plan (1) Acute respiratory failure: Code(s): J96.00 - Acute respiratory failure, unspecified whether with hypoxia or hypercapnia Status: Acute Assessment and Plan: Acute Respiratory failure secondary to cardiopulmonary, arrest, pulmonary edema and suspected aspiration pneumonia -Continue full mechanical ventilation support to prevent hypoxemia/hypercarbia and end organ damage. -ABG and PCXR reviewed, CMV mode of ventilation, peep of 8 and 40% FiO2 -Weaning will depend on neurological improvement -was switched to Unasyn and vancomycin for pneumonia 08/09/2021: Blood cultures negative so far -CTA did not show any pulmonary embolus, pneumonia involving on all lobes worst in the lower lobes. Will pleural effusions -venous Dopplers September 12 with negative (2) Aspiration pneumonia: Code(s): J69.0 - Pneumonitis due to inhalation of food and vomit Status: Acute Assessment and Plan: see above (3) Anoxic brain injury: Code(s): G93.1 - Anoxic brain damage, not elsewhere classified Status: Acute Assessment and Plan: patient was not demonstrating any purposeful movement in ER. He was started on sedatives for mechanical ventilation the ED. When patient arrived to ICU he was reassessed by turning his sedation of but he did not demonstrate any purposeful movement again hence patient was started on TTM protocol. He reached his goal temperature at 3:30 a.m. 08/10 he has completed 24 hours of hypothermia . Patient was we warmed on 08/[address] was negative -patient having involuntary movements and restlessness along with moving his head, unable to perform EEG this morning, will try again later today or tomorrow morning. (4) Cardiopulmonary arrest: Code(s): I46.9 - Cardiac arrest, cause unspecified Status: Acute Assessment and Plan: patient does have history of coronary disease along with several risk factors. It appears that the initial rhythm was either V-tach or VFib as patient was shocked by ED elevated troponin is suggestive of non ST segment elevation [place] cardiology was consulted continue aspirin beta-andra and ARB heparin has been discontinued hold statin due to elevated liver enzymes echocardiogram showed Complete two-dimensional, color flow and Doppler transthoracic echocardiogram is performed. 2. Left ventricular systolic function is low normal, estimated at 50-55%. 3. Left ventricular chamber dimension is normal. 4. There is severely increased left ventricular wall thickness. 5. The left ventricular diastolic function is grade II diastolic dysfunction. 6. The inferior wall is hypokinetic. 7. Right ventricular chamber dimension is mildly enlarged. 8. Left atrial chamber dimension is mildly enlarged. 9. There is mild tricuspid valve regurgitation. (5) NSTEMI (non-ST elevated myocardial infarction): Code(s): I21.4 - Non-ST elevation (NSTEMI) myocardial infarction Status: Acute Assessment and Plan: Cardiology is following the patient, waiting for meaningful neurological recovery before determining that patient needs a coronary angiogram or intervention (6) CAD in [place] artery: Code(s): I25.10 - Atherosclerotic heart disease of [place] coronary artery without angina pectoris Status: Acute Assessment and Plan: see above (7) Dyslipidemia: Code(s): E78.5 - Hyperlipidemia, unspecified Status: Acute Assessment and Plan: hold statin due to elevated liver enzymes (8) Type 2 diabetes mellitus without complication, without long-term current use of insulin: Code(s): E11.9 - Type 2 diabetes mellitus without complications Status: Acute Assessment and Plan: sliding scale insulin continue Lantus (9) Rhabdomyolysis: Code(s): M62.82 - Rhabdomyolysis Status: Acute Assessment and Plan: Will discontinue bicar
[2021-08-12] MEDS: AMPICILLIN SULB 3 GM/NS 100 ML 3 GM/100 ML VIAL IVPB ×2 (12:44→17:50)
[2021-08-12] MEDS: METOCLOPRAMIDE HCL INJ 10 MG/2 ML VIAL IV PUSH ×2 (12:45→17:51)
[2021-08-12 12:54] LABS: Glucose Point of Care 181 mg/dl (65-105)
[2021-08-12] MEDS: dexmedeTOMIDine 400 MCG/100 ML 400 MCG/100 ML BAG 24.55 MCG IV CONT ×3 (13:58→21:37)
--- NOTE | 2021-08-12 15:18 | PM.PNCARD ---
Progress Note: A&P Assessment and Plan (1) Anoxic brain injury: Code(s): G93.1 - Anoxic brain damage, not elsewhere classified Status: Acute Assessment and Plan: Secondary to cardiopulmonary arrest. Bystander CPR was initiated. Completed TTM and has been rewarmed at this point. (2) NSTEMI (non-ST elevated myocardial infarction): Code(s): I21.4 - Non-ST elevation (NSTEMI) myocardial infarction Status: Acute Assessment and Plan: Troponins have essentially peaked 1.68. Continue aspirin, heparin, supportive care, pressors and wean as able. Will need coronary angiogram if meaningful neurological recovery (3) CAD in [place] artery: Code(s): I25.10 - Atherosclerotic heart disease of [place] coronary artery without angina pectoris Status: Acute Assessment and Plan: Previous PCI to the RCA. Moderate disease in the circumflex and LAD. (4) Cardiopulmonary arrest: Code(s): I46.9 - Cardiac arrest, cause unspecified Status: Acute Assessment and Plan: Status post cardiopulmonary arrest. No strips are available better appears that he was in VT or VF initially and subsequently shocked into PEA. Echo showed low normal systolic function with EF 50-55%. He also has grade II diastolic dysfunction. Hypokinesis if the inferior wall. (5) Hypertension associated with diabetes: Code(s): E11.59 - Type 2 diabetes mellitus with other circulatory complications; I15.2 - Hypertension secondary to endocrine disorders Status: Acute (6) Hyperlipidemia associated with type 2 diabetes mellitus: Code(s): E11.69 - Type 2 diabetes mellitus with other specified complication; E78.5 - Hyperlipidemia, unspecified Status: Acute Assessment and Plan: Resume statin when able. Subjective Date/time seen: 08/12/21 15:18 Interval history: This is a 65-year-old gentleman with: Out of hospital cardiac arrest by report was in ventricular fibrillation and was intubated in the emergency room and then placed in the ICU. He is finished with hypothermia protocol and remains intubated on the ventilator. 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 Patient has history of coronary artery disease and history of RCA intervention in the remote past. Has not been compliant or consistent with follow-up in our office with Dr. Bullard. Date of service 08/12/2021: No acute events overnight. Remains intubated and is being sedated with precedex. Apparently became quite restless/agitated with withdrawal of sedation but did not follow commands and was not making purposeful movements. Review of Systems Review of Systems: All systems reviewed & are unremarkable except as noted in HPI and below ROS unobtainable: Yes unobtainable due to endotracheal tube Constitutional: Constitutional: Denies excessive sweating and Denies weakness Eyes: Eyes: Denies blurry vision ENT: Denies epistaxis Cardiovascular: Cardiovascular: Reports pedal edema and Reports dyspnea on exertion Respiratory: Respiratory: Reports dyspnea on exertion Gastrointestinal: Gastrointestinal: Denies diarrhea Genitourinary: Genitourinary: Denies hematuria Musculoskeletal: Musculoskeletal: Denies myalgias Integumentary/Breasts: Skin/Breast: Denies wounds Neurologic: Denies confusion and Denies weakness Psychiatric: Psychiatric: Denies anxiety and Denies confusion Endocrine: Endocrine: Denies excessive sweating Hematologic/Lymphatic: Hematologic/Lymphatic: Denies easy bleeding Allergic/Immunologic: Allergic/Immunologic: Denies GI upset with certain foods Exam Narrative: Intubated, sedated. Const: General: no acute distress; No confusion or uncomfortable Orientation/consciousness: No confusion Other: intubated otherwise healthy-appearing black male on the ventilator HENMT: General nose exam: Normal nares present Mo
[2021-08-12 17:37] LABS: Glucose Point of Care 271 mg/dl (65-105)
[2021-08-12 20:51] LABS: Glucose Point of Care 285 mg/dl (65-105)
[2021-08-12] MEDS: INSULIN GLARGINE (*BKC) 100 UNITS/ML SUB-Q (20:53)
[2021-08-12 22:24] LABS: Heparin Induced Platelet Antib Negative (Negative)
[2021-08-12] MEDS: PROPOFOL IV EMULSION 100 ML 5.89 MG IV CONT (22:47)
[2021-08-13] VITALS (47 sets, daily range): BP systolic 118–166; BP diastolic 62–86; PULSE 60–98; RESP 22–37; TEMP 36.9–39; O2SAT 91–100
[2021-08-13] MEDS: METOCLOPRAMIDE HCL INJ 10 MG/2 ML VIAL IV PUSH ×4 (00:36→17:17)
[2021-08-13] MEDS: AMPICILLIN SULB 3 GM/NS 100 ML 3 GM/100 ML VIAL IVPB ×2 (00:38→05:18)
[2021-08-13 00:39] LABS: Glucose Point of Care 272 mg/dl (65-105)
[2021-08-13] MEDS: INSULIN ASPART (*BKC) 100 UNITS/ML SUB-Q ×6 (00:39→20:09)
[2021-08-13] MEDS: dexmedeTOMIDine 400 MCG/100 ML 400 MCG/100 ML BAG 24.55 MCG IV CONT (00:50)
[2021-08-13] MEDS: SODIUM CHLORIDE 0.9% IV 1,000 ML 50 ML IV CONT (02:06)
[2021-08-13] MEDS: ACETAMINOPHEN ELIXIR 325 MG/10.15 ML UDC 650 MG PO ×2 (05:02→22:10)
[2021-08-13] MEDS: dexmedeTOMIDine 400 MCG/100 ML 400 MCG/100 ML BAG 17.19 MCG IV CONT (05:02)
[2021-08-13 05:06] LABS: Alveolar/Arterial O2 Gradient 117.4 mmHg; Base Excess ABG -1.1 mEq/l (+/-2.0); Carboxyhemoglobin 0.3 % THb (0-2.0); Fractional Inspired Oxygen 35 %; HCO3 ABG 24.4 mEq/l (22.0-26.0); Methemoglobin ABG 0.1 %THb (0-1.5); Oxygen Content ABG 16.4 %vol (16.0-22.0); Oxygen Saturation ABG 95.6 % (95.0-100.0); Oxyhemoglobin 94.6 % THb (90.0-100.0); PCO2 ABG 43.8 mmHg (35.0-45.0); PO2 ABG 81.2 mmHg (80.0-100.0); PO2 FiO2 Ratio Arterial Blood 2.32 %; Total Hemoglobin 12.3 g/dL (12.0-18.0); pH ABG 7.363 (7.350-7.450)
[2021-08-13 05:07] LABS: Device VENTILATOR; Modified Allen's Test Pass; Site Drawn RIGHT RADIAL
[2021-08-13 05:08] LABS: Arterial Blood Gas PEEP 8 cmH2O; Arterial Blood Gas Tidal Volume 450 ml; Arterial Blood Gas Vent Mode CMV; Arterial Blood Gas Ventilator rate 22 /MIN
[2021-08-13 05:22] LABS: Hematocrit 32.3 % (42.0-52.0); Mean Corpuscular Hemoglobin 28.5 pg (26-34); Mean Platelet Volume 10.3 fl (7.4-10.4); Platelet Count Result 94 k/mm3 (150-375); Red Blood Count 3.51 M/mm3 (4.6-6.20); Red Cell Distribution Width 14.7 % (11.5-14.5); White Blood Count 6.9 K/mm3 (4.5-10.0)
[2021-08-13 05:31] LABS: Alanine Aminotransferase 229 U/L (4-50); Albumin Level 3.8 g/dL (3.5-5.1); Alkaline Phosphatase 109 U/L (38-126); Anion Gap 5 mmol/L (8-16); Aspartate Amino Transferase 120 U/L (17-59); Bilirubin,Total 1.1 mg/dL (0.2-1.3); Blood Urea Nitrogen 23 mg/dL (9-20); Carbon Dioxide 28 mmol/L (22-30); Chloride 107 mmol/L (98-107); Estimated CRCL calculation 66 ml/min; Estimated Glomerular Filt Rate > 60; Glucose 289 mg/dL (65-110); Magnesium 2.5 mg/dL (1.6-2.3); Potassium 3.6 mmol/L (3.4-5.0); Sodium 140 mmol/L (137-145)
[2021-08-13 08:24] LABS: Glucose Point of Care 299 mg/dl (65-105)
[2021-08-13] MEDS: ASPIRIN 325 MG TABLET FEED TUBE (08:43)
[2021-08-13] MEDS: CENTRAL LINE FLUSH 10 ML IV PUSH ×3 (08:44→20:14)
[2021-08-13] MEDS: INSULIN GLARGINE (*BKC) 100 UNITS/ML 10 UNITS SUB-Q (08:44)
[2021-08-13] MEDS: FONDAPARINUX SODIUM 2.5 MG/0.5 ML SYRINGE SUB-Q (08:45)
[2021-08-13] MEDS: PANTOPRAZOLE SODIUM IV 40 MG VIAL IV PUSH ×2 (08:46→20:14)
[2021-08-13] MEDS: MINERAL OIL/WHITE PETROLATUM OINTMENT 1 APPLIC EACH EYE ×2 (08:46→20:14)
--- NOTE | 2021-08-13 09:50 | WPDINTPN ---
Progress Note: A&P Assessment and Plan (1) Acute respiratory failure: Code(s): J96.00 - Acute respiratory failure, unspecified whether with hypoxia or hypercapnia Status: Acute Assessment and Plan: Acute Respiratory failure secondary to cardiopulmonary, arrest, pulmonary edema and suspected aspiration pneumonia -Continue full mechanical ventilation support to prevent hypoxemia/hypercarbia and end organ damage. -ABG and PCXR reviewed, CMV mode of ventilation, peep of 8 and 40% FiO2 -Weaning will depend on neurological improvement -continue cefepime and vancomycin 08/13/21 08/09/2021: Blood cultures negative so far -thick ETT secretions, will start Pulmozyme and bronchodilators -CTA did not show any pulmonary embolus, pneumonia involving on all lobes worst in the lower lobes. Will pleural effusions -venous Dopplers September 12 with negative (2) Aspiration pneumonia: Code(s): J69.0 - Pneumonitis due to inhalation of food and vomit Status: Acute Assessment and Plan: see above (3) Anoxic brain injury: Code(s): G93.1 - Anoxic brain damage, not elsewhere classified Status: Acute Assessment and Plan: patient was not demonstrating any purposeful movement in ER. He was started on sedatives for mechanical ventilation the ED. When patient arrived to ICU he was reassessed by turning his sedation of but he did not demonstrate any purposeful movement again hence patient was started on TTM protocol. He reached his goal temperature at 3:30 a.m. 08/10 he has completed 24 hours of hypothermia . Patient was we warmed on 08/[address] was negative -patient having involuntary movements and restlessness along with moving his head, unable to perform EEG this morning, will try again today -patient on low-dose of propofol, Precedex. - Started Seroquel. 08/13 (4) Cardiopulmonary arrest: Code(s): I46.9 - Cardiac arrest, cause unspecified Status: Acute Assessment and Plan: patient does have history of coronary disease along with several risk factors. It appears that the initial rhythm was either V-tach or VFib as patient was shocked by ED elevated troponin is suggestive of non ST segment elevation [place] cardiology was consulted continue aspirin beta-andra and ARB heparin has been discontinued hold statin due to elevated liver enzymes echocardiogram showed Complete two-dimensional, color flow and Doppler transthoracic echocardiogram is performed. 2. Left ventricular systolic function is low normal, estimated at 50-55%. 3. Left ventricular chamber dimension is normal. 4. There is severely increased left ventricular wall thickness. 5. The left ventricular diastolic function is grade II diastolic dysfunction. 6. The inferior wall is hypokinetic. 7. Right ventricular chamber dimension is mildly enlarged. 8. Left atrial chamber dimension is mildly enlarged. 9. There is mild tricuspid valve regurgitation. (5) NSTEMI (non-ST elevated myocardial infarction): Code(s): I21.4 - Non-ST elevation (NSTEMI) myocardial infarction Status: Acute Assessment and Plan: Cardiology is following the patient, waiting for meaningful neurological recovery before determining that patient needs a coronary angiogram or intervention (6) CAD in [place] artery: Code(s): I25.10 - Atherosclerotic heart disease of [place] coronary artery without angina pectoris Status: Acute Assessment and Plan: see above (7) Dyslipidemia: Code(s): E78.5 - Hyperlipidemia, unspecified Status: Acute Assessment and Plan: Will restart statin as LFTs are improving (8) Type 2 diabetes mellitus without complication, without long-term current use of insulin: Code(s): E11.9 - Type 2 diabetes mellitus without complications Status: Acute Assessment and Plan: sliding scale insulin increase Lantus (9) Rhabdomyolysis: Code(s): M6
[2021-08-13] MEDS: DORNASE ALFA INH SOLN 1 MG/ML 2.5 ML AMP 2.5 MG INHALATION ×2 (10:19→19:14)
[2021-08-13] MEDS: QUEtiapine FUMARATE 25 MG TABLET 50 MG PO ×2 (10:33→20:13)
[2021-08-13] MEDS: dexmedeTOMIDine 400 MCG/100 ML 400 MCG/100 ML BAG 14.73 MCG IV CONT (10:35)
[2021-08-13] MEDS: PROPOFOL IV EMULSION 100 ML 11.78 MG IV CONT ×2 (10:42→18:51)
--- NOTE | 2021-08-13 11:39 | PCNFU ---
Nutrition Follow-Up Complete: Inadequate Oral Intake as related to mechanical ventilation as evidenced NPO. goal: Meet estimated nutritional needs. Patient is progressing towards goal. We will continue current goal. Pt current nutrition is Vital AF 1.2 at 50 ml/hr over 22 hours. Last recorded weight is 99.5 kg,up from 93.1 kg on admit. Bowel Motility: +BM reported 5/6 Labs Reviewed: Mg 2.5, Hct 32.3,Hgb 10.0,BUN 23,Glu 289 Meds Noted:Lantus, Heparin, Seroquel,Reglan,Albumin, Levophed, Precedex, Maxipime,NovoLog,Protonix, NS , Vancomycin. Skin: WNL Additional Notes: Patient remains on mechanical vent and tube feedings of Vital AF 1.2 at 50 ml/hr over 22 hours. Current tube feeding is providing 1631 kcals/83 gms protein/892 ml water. Meeting 100% of caloric/protein needs. Free water flush 30 ml q 4 hours. Plans for EEG today. Agree with diet orders. Monitoring: Will monitor every Monday and Monday.
[2021-08-13 11:54] LABS: Glucose Point of Care 326 mg/dl (65-105)
[2021-08-13] MEDS: IPRATROPIUM BR 0.02% INH SOLN 0.5 MG/2.5 ML VIAL INHALATION ×2 (13:40→19:14)
[2021-08-13] MEDS: ALBUTEROL SULFATE NEB 2.5 MG/0.5 ML INH INHALATION ×2 (13:40→19:14)
[2021-08-13 14:11] LABS: UFH SRA Result Interpretation Negative (Negative)
[2021-08-13 14:31] LABS: Glucose Point of Care 310 mg/dl (65-105)
--- NOTE | 2021-08-13 15:54 | PM.PNCARD ---
Progress Note: A&P Assessment and Plan (1) Anoxic brain injury: Code(s): G93.1 - Anoxic brain damage, not elsewhere classified Status: Acute Assessment and Plan: Secondary to cardiopulmonary arrest. Bystander CPR was initiated. Completed TTM and has been rewarmed at this point. (2) NSTEMI (non-ST elevated myocardial infarction): Code(s): I21.4 - Non-ST elevation (NSTEMI) myocardial infarction Status: Acute Assessment and Plan: Troponins have essentially peaked 1.68. Continue aspirin, heparin, supportive care. Off pressors. Will need coronary angiogram if meaningful neurological recovery (3) CAD in [place] artery: Code(s): I25.10 - Atherosclerotic heart disease of [place] coronary artery without angina pectoris Status: Acute Assessment and Plan: Previous PCI to the RCA. Moderate disease in the circumflex and LAD. (4) Cardiopulmonary arrest: Code(s): I46.9 - Cardiac arrest, cause unspecified Status: Acute Assessment and Plan: Status post cardiopulmonary arrest. No strips are available better appears that he was in VT or VF initially and subsequently shocked into PEA. Echo showed low normal systolic function with EF 50-55%. He also has grade II diastolic dysfunction. Hypokinesis if the inferior wall. (5) Hypertension associated with diabetes: Code(s): E11.59 - Type 2 diabetes mellitus with other circulatory complications; I15.2 - Hypertension secondary to endocrine disorders Status: Acute Assessment and Plan: Blood pressure has now increased. He is off of pressors. Will start some metoprolol 12.5 mg p.o./per tube b.i.d. (6) Hyperlipidemia associated with type 2 diabetes mellitus: Code(s): E11.69 - Type 2 diabetes mellitus with other specified complication; E78.5 - Hyperlipidemia, unspecified Status: Acute Assessment and Plan: Resume statin when able. Subjective Date/time seen: 08/13/21 15:54 Interval history: This is a 65-year-old gentleman with: Out of hospital cardiac arrest by report was in ventricular fibrillation and was intubated in the emergency room and then placed in the ICU. He is finished with hypothermia protocol and remains intubated on the ventilator. Electrocardiogram following resuscitation was not consistent with STEMI so he was not brought emergently to the rn cardiac cath. Patient has history of coronary artery disease and history of RCA intervention in the remote past. Has not been compliant or consistent with follow-up in our office with Dr. Bullard. Date of service 08/12/2021: No acute events overnight. Remains intubated and is being sedated with precedex. Apparently became quite restless/agitated with withdrawal of sedation but did not follow commands and was not making purposeful movements. Follow-up note date of service 08/13/2021: Remains intubated. Does respond to painful stimuli. Not purposeful movements to this point. Rhythm stable. Review of Systems Review of Systems: All systems reviewed & are unremarkable except as noted in HPI and below ROS unobtainable: Yes unobtainable due to endotracheal tube Constitutional: Constitutional: Denies excessive sweating and Denies weakness Eyes: Eyes: Denies blurry vision ENT: Denies epistaxis Cardiovascular: Cardiovascular: Reports pedal edema and Reports dyspnea on exertion Respiratory: Respiratory: Reports dyspnea on exertion Gastrointestinal: Gastrointestinal: Denies diarrhea Genitourinary: Genitourinary: Denies hematuria Musculoskeletal: Musculoskeletal: Denies myalgias Integumentary/Breasts: Skin/Breast: Denies wounds Neurologic: Denies confusion and Denies weakness Psychiatric: Psychiatric: Denies anxiety and Denies confusion Endocrine: Endocrine: Denies excessive sweating Hematologic/Lymphatic: Hematologic/Lymphatic: Denies easy bleeding Allergic/Immunologic: Allergic/Immunologic: Denies GI upset with certain
[2021-08-13 16:32] LABS: Glucose Point of Care 265 mg/dl (65-105)
--- NOTE | 2021-08-13 19:32 | P.NEURO_ITS ---
Neurology EEG Report General Information Date of Study: 08/13/21 TEST eeg DIAGNOSIS Unresponsiveness CONDITION OF RECORDING coma CLINICAL HISTORY Unresponsiveness after cardio-respiratory arrest. EEG DESCRIPTION There is a background of medium to high amplitude, generalized synchronous and a synchronous delta activity at 1.5 to 2.5 Hz. Poorly modulated theta activity was admixed. Hyperventilation and photic stimulation were not performed. No epileptiform activity was seen. IMPRESSION This EEG was abnormal due to the presence of severe diffuse background slowing. This EEG was indicative of the presence of severe, bihemispheric cerebral dysfunction of the type seen most commonly in the setting of severe toxico- metabolic encephalopathies or anoxic-ischemic brain injury. No epileptiform activity was present.
[2021-08-13 20:08] LABS: Glucose Point of Care 316 mg/dl (65-105)
[2021-08-13] MEDS: INSULIN GLARGINE (*BKC) 100 UNITS/ML 20 UNITS SUB-Q (20:10)
[2021-08-13] MEDS: ATORVASTATIN 10 MG TABLET PO (20:13)
[2021-08-13] MEDS: METOPROLOL TARTRATE 6.25 MG TABLET FEED TUBE (20:13)
[2021-08-13 23:50] LABS: Glucose Point of Care 299 mg/dl (65-105)
[2021-08-14] VITALS (40 sets, daily range): BP systolic 84–147; BP diastolic 50–84; PULSE 68–95; RESP 26–42; TEMP 37.6–39; O2SAT 94–99
[2021-08-14] MEDS: ALBUTEROL SULFATE NEB 2.5 MG/0.5 ML INH INHALATION ×4 (01:12→20:06)
[2021-08-14] MEDS: IPRATROPIUM BR 0.02% INH SOLN 0.5 MG/2.5 ML VIAL INHALATION ×4 (01:12→20:06)
[2021-08-14] MEDS: ACETAMINOPHEN ELIXIR 325 MG/10.15 ML UDC 650 MG PO ×2 (02:06→13:48)
[2021-08-14] MEDS: PROPOFOL IV EMULSION 100 ML 11.78 MG IV CONT (02:48)
[2021-08-14 04:23] LABS: Basophils Percent Auto 0.6 % (0.2-1.2); Eosinophils Percent Auto 0.6 % (0-4.4); Hemoglobin 9.4 g/dL (14.0-18.0); Immature Granulocyte Absolute 0.38 K/mm3 (0.00-0.031); Immature Granulocyte Percent A 7.5 % (0-0.5); Lymphocytes Absolute Auto 0.63 K/mm3 (0.9-3.2); Lymphocytes Percent Auto 12.4 % (18.3-44.2); Mean Corpuscular HGB Conc 31.3 g/dl (32-36); Mean Corpuscular Hemoglobin 28.9 pg (26-34); Mean Corpuscular Volume 92.3 fl (80-100); Mean Platelet Volume 10.3 fl (7.4-10.4); Monocytes Absolute Auto 0.4 K/mm3 (0.1-0.6); Monocytes Percent Auto 8.6 % (2.6-8.5); Neutrophils Absolute Auto 3.6 K/mm3 (1.3-6.7); Neutrophils Percent Auto 70.3 % (45.5-73.1); Platelet Count Result 108 k/mm3 (150-375); Red Blood Count 3.25 M/mm3 (4.6-6.20); Red Cell Distribution Width 14.6 % (11.5-14.5); White Blood Count 5.1 K/mm3 (4.5-10.0)
[2021-08-14 04:33] LABS: Alanine Aminotransferase 148 U/L (4-50); Albumin Level 3.4 g/dL (3.5-5.1); Alkaline Phosphatase 153 U/L (38-126); Anion Gap 7 mmol/L (8-16); Aspartate Amino Transferase 59 U/L (17-59); Blood Urea Nitrogen 26 mg/dL (9-20); Calcium 7.9 mg/dL (8.4-10.2); Carbon Dioxide 26 mmol/L (22-30); Chloride 107 mmol/L (98-107); Estimated CRCL calculation 57 ml/min; Estimated Glomerular Filt Rate > 60; Glucose 408 mg/dL (65-110); Magnesium 2.4 mg/dL (1.6-2.3); Potassium 3.4 mmol/L (3.4-5.0); Sodium 140 mmol/L (137-145)
[2021-08-14 05:01] LABS: Alveolar/Arterial O2 Gradient 145.3 mmHg; Base Excess ABG -1.1 mEq/l (+/-2.0); Carboxyhemoglobin 0.3 % THb (0-2.0); Fractional Inspired Oxygen 35 %; Methemoglobin ABG 0.4 %THb (0-1.5); Oxygen Content ABG 13.6 %vol (16.0-22.0); Oxygen Saturation ABG 92.6 % (95.0-100.0); Oxyhemoglobin 91.5 % THb (90.0-100.0); PCO2 ABG 35.9 mmHg (35.0-45.0); PO2 ABG 62.5 mmHg (80.0-100.0); PO2 FiO2 Ratio Arterial Blood 1.79 %; Reduced Hemoglobin 7.8 %THb (0-5.0); Total Hemoglobin 10.5 g/dL (12.0-18.0); pH ABG 7.424 (7.350-7.450)
[2021-08-14 05:05] LABS: Device VENTILATOR; Modified Allen's Test Unable to perform; Site Drawn RIGHT RADIAL
[2021-08-14 05:06] LABS: Arterial Blood Gas PEEP 5 cmH2O; Arterial Blood Gas Tidal Volume 450 ml; Arterial Blood Gas Vent Mode CMV; Arterial Blood Gas Ventilator rate 22 /MIN
[2021-08-14 05:33] LABS: Glucose Point of Care 360 mg/dl (65-105)
[2021-08-14] MEDS: INSULIN ASPART (*BKC) 100 UNITS/ML SUB-Q ×6 (05:35→20:11)
[2021-08-14] MEDS: CENTRAL LINE FLUSH 10 ML IV PUSH ×2 (05:36→20:15)
[2021-08-14] MEDS: DORNASE ALFA INH SOLN 1 MG/ML 2.5 ML AMP 2.5 MG INHALATION (07:28)
[2021-08-14 07:38] LABS: Glucose Point of Care 332 mg/dl (65-105)
[2021-08-14] MEDS: FONDAPARINUX SODIUM 2.5 MG/0.5 ML SYRINGE SUB-Q (08:12)
[2021-08-14] MEDS: PANTOPRAZOLE SODIUM IV 40 MG VIAL IV PUSH ×2 (08:13→20:15)
[2021-08-14] MEDS: ASPIRIN 325 MG TABLET FEED TUBE (08:13)
[2021-08-14] MEDS: MINERAL OIL/WHITE PETROLATUM OINTMENT 1 APPLIC EACH EYE ×2 (08:13→20:15)
[2021-08-14] MEDS: METOPROLOL TARTRATE 12.5 MG TABLET FEED TUBE ×2 (08:13→20:15)
[2021-08-14] MEDS: QUEtiapine FUMARATE 25 MG TABLET 50 MG PO ×2 (08:14→20:15)
[2021-08-14] MEDS: INSULIN GLARGINE (*BKC) 100 UNITS/ML 25 UNITS SUB-Q ×2 (08:14→20:09)
--- NOTE | 2021-08-14 09:14 | WPDINTPN ---
Progress Note: A&P Assessment and Plan (1) Acute respiratory failure: Code(s): J96.00 - Acute respiratory failure, unspecified whether with hypoxia or hypercapnia Status: Acute Assessment and Plan: Acute Respiratory failure secondary to cardiopulmonary, arrest, pulmonary edema and suspected aspiration pneumonia -Continue full mechanical ventilation support to prevent hypoxemia/hypercarbia and end organ damage. -ABG and PCXR reviewed, CMV mode of ventilation, peep of 8 and 40% FiO2 -Weaning will depend on neurological improvement -continue cefepime and vancomycin 08/13/21 08/09/2021: Blood cultures negative so far -thick ETT secretions, continue Pulmozyme and bronchodilators -CTA did not show any pulmonary embolus, pneumonia involving on all lobes worst in the lower lobes. Will pleural effusions -venous Dopplers September 12 with negative (2) Aspiration pneumonia: Code(s): J69.0 - Pneumonitis due to inhalation of food and vomit Status: Acute Assessment and Plan: see above (3) Anoxic brain injury: Code(s): G93.1 - Anoxic brain damage, not elsewhere classified Status: Acute Assessment and Plan: patient was not demonstrating any purposeful movement in ER. He was started on sedatives for mechanical ventilation the ED. When patient arrived to ICU he was reassessed by turning his sedation of but he did not demonstrate any purposeful movement again hence patient was started on TTM protocol. He reached his goal temperature at 3:30 a.m. 08/10 he has completed 24 hours of hypothermia . Patient was we warmed on 08/[address] was negative -patient having involuntary movements and restlessness along with moving his head, unable to perform EEG this morning, will try again today -p continuef propofol, off Precedex infusion -increased Seroquel (4) Cardiopulmonary arrest: Code(s): I46.9 - Cardiac arrest, cause unspecified Status: Acute Assessment and Plan: patient does have history of coronary disease along with several risk factors. It appears that the initial rhythm was either V-tach or VFib as patient was shocked by ED elevated troponin is suggestive of non ST segment elevation [place] cardiology was consulted continue aspirin beta-andra and ARB heparin has been discontinued Continue statin 08/10/2021 echocardiogram showed 1. Complete two-dimensional, color flow and Doppler transthoracic echocardiogram is performed 2. Left ventricular systolic function is low normal, estimated at 50-55%. 3. Left ventricular chamber dimension is normal. 4. There is severely increased left ventricular wall thickness. 5. The left ventricular diastolic function is grade II diastolic dysfunction. 6. The inferior wall is hypokinetic. 7. Right ventricular chamber dimension is mildly enlarged. 8. Left atrial chamber dimension is mildly enlarged. 9. There is mild tricuspid valve regurgitation. (5) NSTEMI (non-ST elevated myocardial infarction): Code(s): I21.4 - Non-ST elevation (NSTEMI) myocardial infarction Status: Acute Assessment and Plan: Cardiology is following the patient, waiting for meaningful neurological recovery before determining that patient needs a coronary angiogram or intervention (6) CAD in [place] artery: Code(s): I25.10 - Atherosclerotic heart disease of [place] coronary artery without angina pectoris Status: Acute Assessment and Plan: see above (7) Dyslipidemia: Code(s): E78.5 - Hyperlipidemia, unspecified Status: Acute Assessment and Plan: Continue statin as LFTs are improving (8) Type 2 diabetes mellitus without complication, without long-term current use of insulin: Code(s): E11.9 - Type 2 diabetes mellitus without complications Status: Acute Assessment and Plan: sliding scale insulin Increase Lantus -will switch tube feeds to Glucerna (9) Rhabdomyolysis:
[2021-08-14] MEDS: POTASSIUM/PHOSPHORUS/SODIUM 1.5 GM PACKET 1 PACKET PO (09:18)
--- NOTE | 2021-08-14 11:07 | PM.IMPN ---
Progress Note: A&P Assessment and Plan (1) Anoxic brain injury: Code(s): G93.1 - Anoxic brain damage, not elsewhere classified Status: Acute Assessment and Plan: Manager Validation following Repeat EEG pending Repeat CT scan no evidence of anoxic brain injury (2) Shock: Code(s): R57.9 - Shock, unspecified Status: Acute Assessment and Plan: Probably cardiogenic shock secondary to V-tach/VFib NSTEMI Cardiology consult DC Heparin drip penting hits work up Continue Arixtra for DVT prophylaxis Currently in ICU (3) Aspiration pneumonia: Code(s): J69.0 - Pneumonitis due to inhalation of food and vomit Status: Acute Assessment and Plan: IV Unasyn started on 08/12/2021 DC Zosyn IV vancomycin started on 08/12/2021 Currently on vancomycin and cefepime since 08/13/2021 ct multifocal pneumonia (4) Acute kidney injury: Code(s): N17.9 - Acute kidney failure, unspecified Status: Acute Assessment and Plan: Most likely related to cardiogenic shock and rhabdomyolysis (5) Rhabdomyolysis: Code(s): M62.82 - Rhabdomyolysis Status: Acute Assessment and Plan: Treated with IV hydration (6) NSTEMI (non-ST elevated myocardial infarction): Code(s): I21.4 - Non-ST elevation (NSTEMI) myocardial infarction Status: Acute Assessment and Plan: hold Heparin drip as above Cardiology consult Echo (7) Acute respiratory failure: Code(s): J96.00 - Acute respiratory failure, unspecified whether with hypoxia or hypercapnia Status: Acute Assessment and Plan: Multifactorial secondary to cardiogenic shock and aspiration pneumonia currently intubated on IV antibiotic (8) Cardiopulmonary arrest: Code(s): I46.9 - Cardiac arrest, cause unspecified Status: Acute Assessment and Plan: As above (9) Elevated LFTs: Code(s): R79.89 - Other specified abnormal findings of blood chemistry Status: Acute Assessment and Plan: Probably related to shock liver monitor (10) CAD in [place] artery: Code(s): I25.10 - Atherosclerotic heart disease of [place] coronary artery without angina pectoris Status: Acute Assessment and Plan: Continue current treatment (11) Type 2 diabetes mellitus without complication, without long-term current use of insulin: Code(s): E11.9 - Type 2 diabetes mellitus without complications Status: Acute Assessment and Plan: Insulin sliding scale (12) Essential (primary) hypertension: Code(s): I10 - Essential (primary) hypertension Status: Acute Assessment and Plan: Monitor Additional Plan DVT prophylaxis - heparin is on hold at this time Stress ulcer prophylaxis - PPI Nutrition - start tube feeds Code Status - Full Code Subjective Date/time seen: 08/14/21 11:07 Interval history: 65 years old male with past medical history of coronary artery disease has witnessed cardiac arrest status post CPR presented to the ER initial rhythm was V-tach versus VFib patient also has elevated troponin treated for NSTEMI cardiology was consulted patient also has acute hypoxemic respiratory failure probably related to aspiration pneumonia started on empiric antibiotics currently patient is intubated 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
[2021-08-14 12:43] LABS: Glucose Point of Care 318 mg/dl (65-105)
[2021-08-14] MEDS: PROPOFOL IV EMULSION 100 ML 17.68 MG IV CONT ×3 (12:50→20:08)
[2021-08-14] MEDS: MIDAZOLAM HCL (*CRX) 2 MG/2 ML VIAL IV PUSH ×2 (14:48→17:02)
[2021-08-14] MEDS: FUROSEMIDE INJ 40 MG/4 ML VIAL 20 MG IV PUSH (14:50)
--- NOTE | 2021-08-14 15:53 | PM.PNCARD ---
Progress Note: A&P Assessment and Plan (1) Anoxic brain injury: Code(s): G93.1 - Anoxic brain damage, not elsewhere classified Status: Acute Assessment and Plan: Secondary to cardiopulmonary arrest. Bystander CPR was initiated. Today responsive to verbal stimulation (2) NSTEMI (non-ST elevated myocardial infarction): Code(s): I21.4 - Non-ST elevation (NSTEMI) myocardial infarction Status: Acute Assessment and Plan: Troponins have essentially peaked 1.68. Continue aspirin, heparin, supportive care. Off pressors. Will need coronary angiogram probably early next week3 ASA 81 mg daily, metoprolol and atorvastatin 40 mg daily and plavix 75 mg daily (3) CAD in [place] artery: Code(s): I25.10 - Atherosclerotic heart disease of [place] coronary artery without angina pectoris Status: Acute Assessment and Plan: Previous PCI to the RCA. Moderate disease in the circumflex and LAD. (4) Cardiopulmonary arrest: Code(s): I46.9 - Cardiac arrest, cause unspecified Status: Acute Assessment and Plan: Status post cardiopulmonary arrest. No strips are available better appears that he was in VT or VF initially and subsequently shocked into PEA. Echo showed low normal systolic function with EF 50-55%. He also has grade II diastolic dysfunction. Hypokinesis if the inferior wall. (5) Hypertension associated with diabetes: Code(s): E11.59 - Type 2 diabetes mellitus with other circulatory complications; I15.2 - Hypertension secondary to endocrine disorders Status: Acute Assessment and Plan: cont metoporlol 12.5 mg BID (6) Hyperlipidemia associated with type 2 diabetes mellitus: Code(s): E11.69 - Type 2 diabetes mellitus with other specified complication; E78.5 - Hyperlipidemia, unspecified Status: Acute Assessment and Plan: restart statin Subjective Date/time seen: 08/14/21 15:53 Interval history: No acute events Today he is responsive to verbal stimulation Review of Systems Review of Systems: ROS unobtainable: Yes unobtainable due to endotracheal tube Exam Narrative: Intubated, sedated. Const: General: no acute distress; No confusion or uncomfortable Orientation/consciousness: No confusion Other: intubated otherwise healthy-appearing black male on the ventilator HENMT: General nose exam: Normal nares present Mouth: Yes moist mucous membranes Eyes: Sclera: sclerae normal Neck: Neck: supple and no JVD Chest: Other: Cooling vest in place. No chest deformities Resp: Effort & Inspection: normal respiratory effort Auscultation: clear to auscultation bilaterally Other: Few central rhonchi Cardio: Rate: regular rate Rhythm: regular rhythm Other: GI: Inspection: non-distended Auscultation: normal bowel sounds Skin: General skin exam: normal color Other: Warm Neuro: General: No confusion Cognition (Neuro): abnormal cognition Speech: No normal speech Other: unresponsive on ventilator Extrem: General: edema (Trivial lower extremity edema) bilateral Other: no edema good distal pulses Psych: Other: Sedated Objective Data Vital Signs Vital Signs: Vital Signs - 24 hr 08/13/21 16:00 08/13/21 17:30 08/13/21 18:00 Temperature 36.9 C 37.5 C Pulse Rate 75 80 79 Respiratory Rate 28 H 28 H Blood Pressure 147/75 H 148/76 H Pulse Oximetry 96 96 96 08/13/21 18:51 08/13/21 19:45 08/13/21 20:00 Temperature 38.4 C H Pulse Rate 85 80 96 Respiratory Rate 37 H 32 H 28 H Blood Pressure 155/66 H Pulse Oximetry 92 94 08/13/21 20:10 08/13/21 20:13 08/13/21 22:00 Temperature 39.0 C H Pulse Rate 80 98 91 Respiratory Rate 32 H 34 H Blood Pressure 118/65 Pulse Oximetry 91 08/13/21 22:10 08/13/21 23:00 08/13/21 23:10 Temperature 39.0 C H 39.0 C H Pulse Rate 84 Respiratory Rate Blood Pressure Pulse Oximetry 94 08/13/21 23:49 08/13/21 23:52 08/14/21 00:00 T
[2021-08-14 17:07] LABS: Glucose Point of Care 304 mg/dl (65-105)
[2021-08-14 20:08] LABS: Glucose Point of Care 318 mg/dl (65-105)
[2021-08-14] MEDS: ATORVASTATIN 40 MG TABLET PO (20:14)
[2021-08-14 22:08] LABS: Glucose Point of Care 373 mg/dl (65-105)
[2021-08-14] MEDS: NOREPINEPHRINE 8 MG/D5W 250 ML 8 MG/250 ML BAG 9.38 MG IV CONT (22:27)
[2021-08-14] MEDS: hetaSTARCH 6%/NACL 500 ML 250 ML IV CONT (22:28)
[2021-08-14] MEDS: MIDAZOLAM 100MG/NS 100ML(*CRX) 100 MG/100 ML BAG IV CONT (23:36)
[2021-08-15] VITALS (26 sets, daily range): BP systolic 50–134; BP diastolic 28–76; PULSE 58–95; RESP 16–42; TEMP 37.8–38.2; O2SAT 89–99
[2021-08-15] MEDS: DORNASE ALFA INH SOLN 1 MG/ML 2.5 ML AMP 2.5 MG INHALATION ×2 (01:35→08:17)
[2021-08-15] MEDS: IPRATROPIUM BR 0.02% INH SOLN 0.5 MG/2.5 ML VIAL INHALATION ×3 (01:36→14:19)
[2021-08-15] MEDS: ALBUTEROL SULFATE NEB 2.5 MG/0.5 ML INH INHALATION ×3 (01:36→14:19)
[2021-08-15 01:48] LABS: Glucose Point of Care 298 mg/dl (65-105)
[2021-08-15] MEDS: INSULIN ASPART (*BKC) 100 UNITS/ML SUB-Q ×4 (01:48→12:59)
[2021-08-15] MEDS: QUEtiapine FUMARATE 25 MG TABLET 50 MG PO ×2 (01:50→09:06)
[2021-08-15 05:03] LABS: Alveolar/Arterial O2 Gradient 300.2 mmHg; Base Excess ABG -0.8 mEq/l (+/-2.0); Carboxyhemoglobin 0.3 % THb (0-2.0); Device VENTILATOR; Fractional Inspired Oxygen 60 %; HCO3 ABG 24.1 mEq/l (22.0-26.0); Methemoglobin ABG 0.3 %THb (0-1.5); Modified Allen's Test Pass; Oxygen Content ABG 12.2 %vol (16.0-22.0); Oxygen Saturation ABG 96.1 % (95.0-100.0); Oxyhemoglobin 95.1 % THb (90.0-100.0); PCO2 ABG 40.7 mmHg (35.0-45.0); PO2 ABG 82.8 mmHg (80.0-100.0); PO2 FiO2 Ratio Arterial Blood 1.38 %; Reduced Hemoglobin 4.3 %THb (0-5.0); Site Drawn LEFT RADIAL
[2021-08-15 05:04] LABS: Arterial Blood Gas PEEP 5 cmH2O; Arterial Blood Gas Tidal Volume 450 ml; Arterial Blood Gas Vent Mode CMV; Arterial Blood Gas Ventilator rate 22 /MIN
[2021-08-15 05:26] LABS: Hematocrit 26.2 % (42.0-52.0); Hemoglobin 8.4 g/dL (14.0-18.0); Mean Corpuscular HGB Conc 32.1 g/dl (32-36); Mean Corpuscular Volume 90.3 fl (80-100); Mean Platelet Volume 10.7 fl (7.4-10.4); Platelet Count Result 112 k/mm3 (150-375)
[2021-08-15] MEDS: CENTRAL LINE FLUSH 10 ML IV PUSH ×2 (05:33→12:58)
[2021-08-15 05:42] LABS: Alanine Aminotransferase 175 U/L (4-50); Alkaline Phosphatase 198 U/L (38-126); Anion Gap 7 mmol/L (8-16); Aspartate Amino Transferase 142 U/L (17-59); Bilirubin,Total 1.4 mg/dL (0.2-1.3); Blood Urea Nitrogen 37 mg/dL (9-20); Calcium 7.9 mg/dL (8.4-10.2); Carbon Dioxide 26 mmol/L (22-30); Chloride 107 mmol/L (98-107); Estimated CRCL calculation 30 ml/min; Estimated Glomerular Filt Rate 29; Glucose 295 mg/dL (65-110); Magnesium 2.4 mg/dL (1.6-2.3); Phosphorus 3.2 mg/dL (2.5-4.5); Potassium 3.7 mmol/L (3.4-5.0); Sodium 140 mmol/L (137-145)
[2021-08-15 05:44] LABS: Glucose Point of Care 276 mg/dl (65-105)
[2021-08-15 05:47] LABS: Hemoglobin A1C > 14.0 % (<5.7)
[2021-08-15 08:57] LABS: Glucose Point of Care 264 mg/dl (65-105)
[2021-08-15] MEDS: INSULIN GLARGINE (*BKC) 100 UNITS/ML 35 UNITS SUB-Q (08:59)
[2021-08-15] MEDS: LACTATED RINGERS 1,000 ML 75 ML IV CONT (08:59)
[2021-08-15] MEDS: FONDAPARINUX SODIUM 2.5 MG/0.5 ML SYRINGE SUB-Q (09:06)
[2021-08-15] MEDS: MINERAL OIL/WHITE PETROLATUM OINTMENT 1 APPLIC EACH EYE (09:06)
[2021-08-15] MEDS: PANTOPRAZOLE SODIUM IV 40 MG VIAL IV PUSH (09:06)
[2021-08-15] MEDS: CLOPIDOGREL BISULFATE 75 MG TABLET PO (09:07)
[2021-08-15] MEDS: ASPIRIN 325 MG TABLET FEED TUBE (09:07)
--- NOTE | 2021-08-15 11:58 | PM.CNNEP ---
Assessment and Plan Assessment and plan (1) Acute kidney injury: Code(s): N17.9 - Acute kidney failure, unspecified Status: Acute Assessment and Plan: presumably due to hemodynamic instability/sepsis did have a cardiac arrest and contrast exposure but that was almost 4 days and less likely to blame check renal ultrasound check urine lytes, urine eosinophils follow trend of repeat labs and UOP (2) Cardiopulmonary arrest: Code(s): I46.9 - Cardiac arrest, cause unspecified Status: Acute Assessment and Plan: as noted by events prior to arrival to hospital presumed to be secondary to NSTEMI Cardiology following - ischemic evaluation depending on neurological status (3) Acute respiratory failure: Code(s): J96.00 - Acute respiratory failure, unspecified whether with hypoxia or hypercapnia Status: Acute Assessment and Plan: from cardiac arrest and suspected aspiration pneumonia imaging of lungs noted follow culture data on antibiotics (4) Anoxic brain injury: Code(s): G93.1 - Anoxic brain damage, not elsewhere classified Status: Acute Assessment and Plan: evaluation in progress attempt EEG when able brain imaging noted (5) NSTEMI (non-ST elevated myocardial infarction): Code(s): I21.4 - Non-ST elevation (NSTEMI) myocardial infarction Status: Acute Assessment and Plan: see #2 (6) Anemia: Code(s): D64.9 - Anemia, unspecified Status: Acute Assessment and Plan: low H/H was on heparin gtt previously (off at this time) likely related to acute illness follow trend of Hgb (7) Type 2 diabetes mellitus without complication, without long-term current use of insulin: Code(s): E11.9 - Type 2 diabetes mellitus without complications Status: Chronic Assessment and Plan: follow accuchecks glycemic control Discussed case with Dr. Cortes. Will continue to follow History of Present Illness Reason for Consult Consult date: 08/15/21 Reason for consult: acute renal failure Chief Complaint Chief complaint: cardiopulmonary arrest History of Present Illness Narrative: All the information I have obtained is from review of the electronic medical record as well as discussion with the physicians/nurses involved in his care as the patient is unable to provide any history as he is currently intubated and sedated on the ventilator. The patient is a 65-year-old male with a past medical history as outlined below who presented to [facility] Emergency room from home after a cardiac arrest. Apparently, the patient was standing in a doorway talking to his when he suddenly slumped over. His was able to catch him and gently put him on the ground. He was apparently unresponsive and she called 911 for further assistance. By the time of arrival by both police and EMS an 80 Diederich was applied to the patient which advised 1 shock for what is suspected is a V-tach/VFib (but there is no confirmation of this). Further ACLS protocol was initiated and an oral airway was attempted but the patient vomited and presumably aspirated as well. He apparently had return of systemic circulation but he apparently was not following commands and was nonverbal. By the time of his arrival to the emergency room, his mentation still had not improved so he was intubated and placed on mechanical ventilation. Routine blood tests were significant for an elevated troponin which appeared consistent with a non ST elevation RI. Cardiology was consulted from the emergency room with recommendations for heparin drip and ongoing medical management. He was subsequently transferred to the ICU for further evaluation and therapy. Since his admission, there has been some concern that he has some anoxic brain injury but this has yet to be confirmed. He was on the hypothermia protocol on admission and h
--- NOTE | 2021-08-15 12:34 | WPDINTPN ---
Progress Note: A&P Assessment and Plan (1) Acute respiratory failure: Code(s): J96.00 - Acute respiratory failure, unspecified whether with hypoxia or hypercapnia Status: Acute Assessment and Plan: Acute Respiratory failure secondary to cardiopulmonary, arrest, pulmonary edema and suspected aspiration pneumonia -Continue full mechanical ventilation support to prevent hypoxemia/hypercarbia and end organ damage. -ABGs reviewed, chest x-ray shows diffuse lung disease, sister with pneumonia and pulmonary edema, patient was given Lasix yesterday no improvement in chest x-ray, likely worsening pneumonia -continue CMV mode of ventilation, will increase PEEP to 10, will decrease tidal volume to 450ml -Weaning will depend on neurological improvement -continue cefepime and vancomycin 08/13/21, will add levofloxacin (08/15) 08/09/2021: Blood cultures negative so far -thick ETT secretions, continue Pulmozyme and bronchodilators -08/11/21: CTA did not show any pulmonary embolus, pneumonia involving on all lobes worst in the lower lobes. Will pleural effusions -venous Dopplers September 12 with negative (2) Aspiration pneumonia: Code(s): J69.0 - Pneumonitis due to inhalation of food and vomit Status: Acute Assessment and Plan: see above (3) Anoxic brain injury: Code(s): G93.1 - Anoxic brain damage, not elsewhere classified Status: Acute Assessment and Plan: patient was not demonstrating any purposeful movement in ER. He was started on sedatives for mechanical ventilation the ED. When patient arrived to ICU he was reassessed by turning his sedation of but he did not demonstrate any purposeful movement again hence patient was started on TTM protocol. He reached his goal temperature at 3:30 a.m. 08/10 he has completed 24 hours of hypothermia . Patient was we warmed on 08/[address] was negative -patient having involuntary movements and restlessness along with moving his head, unable to perform EEG this morning, will try again today -p continuef propofol, off Precedex infusion Continue Seroquel 08/13/2021: EEG This EEG was abnormal due to the presence of severe diffuse background slowing. This EEG was indicative of the presence of severe, bihemispheric cerebral dysfunction of the type seen most commonly in the setting of severe toxico-metabolic encephalopathies or anoxic-ischemic brain injury. No epileptiform activity was present. (4) Cardiopulmonary arrest: Code(s): I46.9 - Cardiac arrest, cause unspecified Status: Acute Assessment and Plan: patient does have history of coronary disease along with several risk factors. It appears that the initial rhythm was either V-tach or VFib as patient was shocked by ED elevated troponin is suggestive of non ST segment elevation [facility] was consulted continue aspirin, statin Hold metoprolol due to low blood pressures 08/10/2021 echocardiogram showed 1. Complete two-dimensional, color flow and Doppler transthoracic echocardiogram is performed 2. Left ventricular systolic function is low normal, estimated at 50-55%. 3. Left ventricular chamber dimension is normal. 4. There is severely increased left ventricular wall thickness. 5. The left ventricular diastolic function is grade II diastolic dysfunction. 6. The inferior wall is hypokinetic. 7. Right ventricular chamber dimension is mildly enlarged. 8. Left atrial chamber dimension is mildly enlarged. 9. There is mild tricuspid valve regurgitation. (5) NSTEMI (non-ST elevated myocardial infarction): Code(s): I21.4 - Non-ST elevation (NSTEMI) myocardial infarction Status: Acute Assessment and Plan: Cardiology is following the patient, waiting for meaningful neurological recovery before determining that patient needs a coronary angiogram or intervention (6) CAD in [place] artery: Code(s): I25.10 - Atherosclerotic heart disease of [place]
[2021-08-15 12:50] LABS: Creatinine Urine 94.3 mg/dL; Total Protein Urine Random 187 mg/dL; Ur Ttl Prot Creatinine Ratio 1.98 mg/mg (0-0.20)
[2021-08-15 12:51] LABS: Sodium Urine Random 22 meq/L
[2021-08-15] MEDS: hetaSTARCH 6%/NACL 500 ML 250 ML IV CONT (12:54)
[2021-08-15 13:00] LABS: Glucose Point of Care 258 mg/dl (65-105)
[2021-08-15 14:13] LABS: Vancomycin Trough 22.8 ug/mL (10.0-20.0)
[2021-08-15] MEDS: NOREPINEPHRINE 8 MG/D5W 250 ML 8 MG/250 ML BAG 9.38 MG IV CONT (14:24)
--- NOTE | 2021-08-15 15:47 | ECG_ITS ---
Measurements Intervals [place] Rate: 64 P: [place]: 0 QRS: 107 QRSD: 166 T: 0 QT: 421 QTc: 436 Interpretive Statements JUNCTIONAL RHYTHM WITH INTERMITTENT SINUS RHYTHM WITH FIRST DEGREE AV BLOCK RIGHT AXIS DEVIATION RIGHT BUNDLE BRANCH BLOCK MINIMAL Q WAVES- INFERIOR LEADS BASELINE WANDER- V2 ABNORMAL ECG Electronically Signed On 08-15-2021 19:00:43 CDT by Vidal Landeros D.O.
--- NOTE | 2021-08-15 16:02 | ECG_ITS ---
Measurements Intervals [place] Rate: 34 P: CO: 0 QRS: -27 QRSD: 160 T: 0 QT: 427 QTc: 322 Interpretive Statements SLOW JUNCTIONAL RHYTHM RIGHT BUNDLE BRANCH BLOCK ABNORMAL ECG Electronically Signed On 08-18-2021 8:47:15 CDT by Vidal Landeros D.O.
--- NOTE | 2021-08-15 16:04 | PC.NURSE ---
Patient's heart rate dropped into the 30's and blood pressure dropped to 58/28. Levophed increased and EKG obtained. Dr. Cortes called and given update on patient's condition. New orders received. Patient's heart rate dropped to 30 with no pulse. CPR initiated and damir bernal called.
--- NOTE | 2021-08-15 17:17 | P.RRN_ITS ---
Critical Care Event Note Summary Code activated: Yes Narrative: Zaida dolores was called at 1604. please review Code Blue note for details. I called and updated family, Shayna Mock, of the patient going into cardiac arrest within minutes of the episode. we discussed in detail the pa yarely's poor prognosis. she arrived bedside along with her daughter. we discussed futility and that despite high-quality CPR patient, The patient was continuing to lose his pulse and only temporarily reaching ROSC 2x during the code event. At 1639 patient's Shayna Mock agreed to stopping CPR. pronounced by myself, Dr. López. rest of family updated bedside. Nurses to call organ donor network. Time of 1639 cause of cardiopulmonary arrest secondary to suspected NSTEMI Critical care time: 30 - 74 mins
--- NOTE | 2021-08-15 17:28 | PM.PNCARD ---
Progress Note: A&P Assessment and Plan (1) Anoxic brain injury: Code(s): G93.1 - Anoxic brain damage, not elsewhere classified Status: Acute Assessment and Plan: Secondary to cardiopulmonary arrest. Bystander CPR was initiated. Today again less responsive and no response to verbal stimuli and weak response to painful stimuli (2) NSTEMI (non-ST elevated myocardial infarction): Code(s): I21.4 - Non-ST elevation (NSTEMI) myocardial infarction Status: Acute Assessment and Plan: Troponins have essentially peaked 1.68. Continue aspirin, heparin, supportive care. Off pressors. Will need coronary angiogram probably early next week when more neurologic state more clear ASA 81 mg daily, metoprolol and atorvastatin 40 mg daily and plavix 75 mg daily (3) CAD in [place] artery: Code(s): I25.10 - Atherosclerotic heart disease of [place] coronary artery without angina pectoris Status: Acute Assessment and Plan: Previous PCI to the RCA. Moderate disease in the circumflex and LAD. (4) Cardiopulmonary arrest: Code(s): I46.9 - Cardiac arrest, cause unspecified Status: Acute Assessment and Plan: Status post cardiopulmonary arrest. No strips are available better appears that he was in VT or VF initially and subsequently shocked into PEA. Echo showed low normal systolic function with EF 50-55%. He also has grade II diastolic dysfunction. Hypokinesis if the inferior wall. just updated by RN that he developed recurrent PEA arrest with no obvious ST elevation in monitor (5) Hypertension associated with diabetes: Code(s): E11.59 - Type 2 diabetes mellitus with other circulatory complications; I15.2 - Hypertension secondary to endocrine disorders Status: Acute Assessment and Plan: cont metoporlol 12.5 mg BID (6) Hyperlipidemia associated with type 2 diabetes mellitus: Code(s): E11.69 - Type 2 diabetes mellitus with other specified complication; E78.5 - Hyperlipidemia, unspecified Status: Acute Assessment and Plan: restart statin Subjective Date/time seen: 08/15/21 17:28 Interval history: not responsive today and also sedated has been stable overnight Review of Systems Review of Systems: ROS unobtainable: Yes unobtainable due to endotracheal tube Exam Narrative: Intubated, sedated. Const: General: no acute distress; No confusion or uncomfortable Orientation/consciousness: No confusion Other: intubated otherwise healthy-appearing black male on the ventilator HENMT: General nose exam: Normal nares present Mouth: Yes moist mucous membranes Eyes: Sclera: sclerae normal Neck: Neck: supple and no JVD Chest: Other: Cooling vest in place. No chest deformities Resp: Effort & Inspection: normal respiratory effort Auscultation: clear to auscultation bilaterally Other: Few central rhonchi Cardio: Rate: regular rate Rhythm: regular rhythm Other: GI: Inspection: non-distended Auscultation: normal bowel sounds Skin: General skin exam: normal color Other: Warm Neuro: General: No confusion Cognition (Neuro): abnormal cognition Speech: No normal speech Other: unresponsive on ventilator Extrem: General: edema (Trivial lower extremity edema) bilateral Other: no edema good distal pulses Psych: Other: Sedated Objective Data Vital Signs Vital Signs: Vital Signs - 24 hr 08/14/21 17:57 08/14/21 18:00 08/14/21 20:00 Temperature 37.8 C H 37.7 C H Pulse Rate 79 77 90 Respiratory Rate 31 H 30 H Blood Pressure 117/62 110/62 Pulse Oximetry 98 98 08/14/21 20:03 08/14/21 20:08 08/14/21 20:15 Temperature Pulse Rate 85 85 92 Respiratory Rate 38 H Blood Pressure Pulse Oximetry 99 08/14/21 20:25 08/14/21 22:00 08/14/21 22:27 Temperature 37.6 C H Pulse Rate 89 84 Respiratory Rate 34 H 30 H Blood Pressure 93/56 L 84/50 L Pulse Oximetry 98 08/14/21 22:45 08/14/21 23:20 05
[2021-08-19 16:40] LABS: Chloride Rand Ur <20 mmol/L (32-290); Creatinine Random Urine 91 mg/dL (20-320)
== END 2021-08-15 16:39 | disposition expired ==
LOC: ANHED 16:51 → ANHICU 20:26
PROVIDERS: Internal Medicine; Internal Medicine Cardiovascular Disease; Internal Medicine Nephrology; Nurse Practitioner Adult Health; Admitting Provider Family Medicine; Emergency Provider Emergency Medicine; PCP Family Medicine; Visit Provider Student in an Organized Health Care Education/Training Program
DX: I21.4 Non-ST elevation (NSTEMI) myocardial infarction (principal); J96.00 Acute respiratory failure, unspecified whether with hypoxia or hypercapnia; J69.0 Pneumonitis due to inhalation of food and vomit; G93.41 Metabolic encephalopathy; K72.00 Acute and subacute hepatic failure without coma; M62.82 Rhabdomyolysis; G93.1 Anoxic brain damage, not elsewhere classified; N17.9 Acute kidney failure, unspecified; I47.2 Ventricular tachycardia; I46.9 Cardiac arrest, cause unspecified; R79.89 Other specified abnormal findings of blood chemistry; I25.10 Atherosclerotic heart disease of native coronary artery without angina pectoris; D69.6 Thrombocytopenia, unspecified; R57.0 Cardiogenic shock; E87.8 Other disorders of electrolyte and fluid balance, not elsewhere classified; E78.5 Hyperlipidemia, unspecified; Z82.49 Family history of ischemic heart disease and other diseases of the circulatory system; Z81.1 Family history of alcohol abuse and dependence; Z80.0 Family history of malignant neoplasm of digestive organs; Z80.8 Family history of malignant neoplasm of other organs or systems; Z79.82 Long term (current) use of aspirin; Z79.899 Other long term (current) drug therapy; I15.2 Hypertension secondary to endocrine disorders; E11.69 Type 2 diabetes mellitus with other specified complication; Z95.5 Presence of coronary angioplasty implant and graft
CPT/HCPCS: 31500; 36415; 36556; 36600; 51702; 70450; 71045; 71275; 72125; 74177; 76775; 80048; 80053; 80202; 80307; 81001; 81050; 82375; 82436; 82550; 82570; 82805; 82948; 83036; 83050; 83605; 83690; 83735; 83880; 84100; 84156; 84300; 84484; 85025; 85027; 85049; 85380; 85384; 85610; 85730; 85999; 86022; 87040; 87070; 87077; 87106; 87186; 87205; 92950; 93005; 93306; 93970; 94003; 94640; 95816; 96365; 96368; 96375; 99291; A9270; C1751; C9113; J0282; J0295; J0330; J0610; J0692; J1250; J1644; J1652; J1815; J1940; J1956; J2250; J2310; J2405; J2543; J2704; J2765; J3010; J3370; J3475; J7030; J7120; P9047; Q9967